=== PATIENT | female | born 1940 | race Caucasian/White ===

== ENCOUNTER 2018-04-05 09:27 | Inpatient (IN) ==
[2018-04-05 09:48] LABS: Basophils % 0.3 % (0.1-2.0); Eosinophils # 0.1 K/mm3 (0.0-0.4); Eosinophils % 1.2 % (0.1-12.0); Hematocrit 33.9 % (37.0-47.0); Hemoglobin 10.9 g/dL (12.2-16.2); Lymphocytes % 12.2 % (10-50); Mean Corpuscular Hemoglobin 30.8 pg (27.0-31.2); Mean Platelet Volume 6.7 fl (7.4-10.4); Monocytes # 0.4 K/mm3 (0.1-1.0); Neutrophils # 6.4 K/mm3 (1.8-7.8); Neutrophils % 81.3 % (37.0-80.0); Platelet Count 356 K/mm3 (142-424); Red Blood Count 3.53 M/mm3 (4.20-5.40); Red Cell Distribution Width 12.4 % (11.5-17.5); White Blood Count 7.8 K/mm3 (4.8-10.8)
--- NOTE | 2018-04-05 09:49 | Emergency Department Note ---
ED Disposition Clinical Impression: Weakness Rhabdomyolysis Qualifiers: Rhabdomyolysis type: traumatic Encounter type: initial encounter Qualified Code(s): T79.6XXA - Traumatic ischemia of muscle, initial encounter Disposition: Admitted As Inpatient Condition on Discharge: [facility] - Critical Care Critical Care Time: No Attestation: On 04/05/18, the high probability of a clinically significant, sudden or life threatening deterioration of the following system(s) required my full and direct attention, intervention and personal management. The time I documented below is in addition to time spent performing reported procedures but includes the following listed in this critical care notation. Medical Decision Making - Boogie Inquiry Pt receiving controlled substance: No Vital Signs: 04/05/18 09:23 04/05/18 09:53 04/05/18 10:53 Temperature 98.3 F Temperature Source Oral Pulse Rate Pulse Rate [Right Brachial] 85 85 89 Respiratory Rate 22 Blood Pressure [Right Arm] 155/56 H 132/56 L 141/70 H Blood Pressure Mean [Right Arm] 89 81 93 Blood Pressure Source [Right Arm] Automatic Cuff Automatic Cuff Blood Pressure Position [Right Arm] Sitting 02 Sat by Pulse Oximetry 99 94 L 96 Oxygen Delivery Method Room Air 04/05/18 11:00 04/05/18 11:30 04/05/18 12:00 Temperature Temperature Source Pulse Rate Pulse Rate [Right Brachial] 91 H 95 H 77 Respiratory Rate Blood Pressure [Right Arm] 136/79 125/44 L 99/44 L Blood Pressure Mean [Right Arm] 98 71 62 Blood Pressure Source [Right Arm] Blood Pressure Position [Right Arm] 02 Sat by Pulse Oximetry 96 93 L 91 L Oxygen Delivery Method 04/05/18 13:00 04/05/18 13:30 04/05/18 13:51 Temperature Temperature Source Pulse Rate Pulse Rate [Right Brachial] 80 85 87 Respiratory Rate Blood Pressure [Right Arm] 139/61 154/64 H Blood Pressure Mean [Right Arm] 87 94 Blood Pressure Source [Right Arm] Automatic Cuff Blood Pressure Position [Right Arm] 02 Sat by Pulse Oximetry 92 L 93 L 96 Oxygen Delivery Method 04/05/18 14:30 04/05/18 15:00 04/05/18 15:41 Temperature Temperature Source Pulse Rate 87 Pulse Rate [Right Brachial] 86 80 Respiratory Rate Blood Pressure [Right Arm] 148/67 H 114/51 L Blood Pressure Mean [Right Arm] 94 72 Blood Pressure Source [Right Arm] Blood Pressure Position [Right Arm] 02 Sat by Pulse Oximetry 96 93 L Oxygen Delivery Method - Lab Data Lab Results 04/05/18 09:35: WBC 7.8, RBC 3.53 L, Hgb 10.9 L, Hct 33.9 L, MCV 96.0, MCH 30.8, MCHC 32.0, RDW 12.4, Plt Count 356, MPV 6.7 L, Neut % (Auto) 81.3 H, Lymph % (Auto) 12.2, [place] % (Auto) 5.0, Eos % (Auto) 1.2, Baso % (Auto) 0.3, Neut # (Auto) 6.4, Lymph # (Auto) 1.0, [place] # (Auto) 0.4, Eos # (Auto) 0.1, Baso # (Auto) 0.0 04/05/18 09:35: Sodium 137, Potassium 3.8, Chloride 101, Carbon Dioxide 27, Anion Gap 12.8, BUN 24 H, Creatinine 0.98, Estimated Creat Clear 93, Estimated GFR 55 L, Est GFR ( Amer) 67, Glucose 126 H, Calcium 9.2, Total Bilirubin 0.7, AST 42 H, ALT 24, Alkaline Phosphatase 77, Total Creatine Kinase 856 H*, CK-MB (CK-2) 5.6 H, CK-MB (CK-2) Rel Index 0.7, Troponin I < 0.02, Total Protein 6.3 L, Albumin 2.8 L, Globulin 3.5 H, Albumin/Globulin Ratio 0.8 L 04/05/18 09:35: B-Natriuretic Peptide 78 04/05/18 09:35: TSH 0.98 04/05/18 09:35: Urine Opiates Screen Positive H, Urine Methadone Screen Negati ve, Ur Barbituates Screen Negative, Ur Phencyclidine Scrn Negative, Ur Amphetamines Screen Negative, U Benzodiazepines Scrn Negative, Urine Cocaine Screen Negative, U Marijuana (THC) Screen Negative 04/05/18 10:55: Urine Color Yellow, Urine Appearance Clear, Urine pH 6.0, Ur Specific [place] 1.015, Urine Protein Negative, Urine Glucose (UA) Negative, Urine Ketones Trace, Urine Blood Negative, Urine Nitrate Negative, Urine Bilirubin Negative, Urine Urobilinogen 0.2, Ur Leukocyte Esterase Negative, Urine RBC None, Urine WBC Occasional, Ur Squamous Epith Cells Occasional, Urine Bacteria None Result diagrams: 04/05/18 09:35 04/05/18 09:35 Orders (Tests/Meds): ED MEDICATIONS Generic Name Dose Route Start Last Admin Trade Name Grace PRN Reason Stop Dose Admin Amlodipine Besylate 5 mg 04/06/18 09:00 Norvasc 5mg Tablet PO 05/06/18 08:59 DAILY BEATA Sodium Chloride 1,000 mls @ 150 mls/hr 04/05/18 16:38 Sod Chlor 0.9% 1000ml Bag IV 05/05/18 10:44 .Q6H40M BEATA Sodium Chloride 1,000 mls @ 150 mls/hr 04/05/18 17:45 Sod Chlor 0.9% 1000ml Bag IV 05/05/18 17:44 .Q6H40M BEATA Sodium Chloride 10 ml 04/05/18 16:38 Saline Flush 10ml Syringe IV 05/05/18 09:54 NEEDED PRN Maintain IV Site Discontinued Medications Generic Name Dose Route Start Last Admin Trade Name Grace PRN Reason Stop Dose Admin Hydrocodone Bitart/Acetaminophen 1 tab 04/05/18 16:38 [place] 5/325mg Tablet PO 05/05/18 16:37 Q4HP PRN Mild to Moderate Pain Sodium Chloride 1,000 mls @ 150 mls/hr 04/05/18 10:45 04/05/18 10:48 Sod Chlor 0.9% 1000ml Bag IV 05/05/18 10:44 150 mls/hr .Q6H40M BEATA Administration Indapamide 1.25 mg 04/06/18 09:00 Lozol 2.5mg Tablet PO 05/06/18 08:59 DAILY BEATA Lisinopril 40 mg 04/06/18 09:00 Zestril 20mg Tab PO 05/06/18 08:59 DAILY BEATA Oxybutynin Chloride 5 mg 04/06/18 09:00 Ditropan 5mg Tablet PO 05/06/18 08:59 DAILY BEATA Sodium Chloride 10 ml 04/05/18 09:55 Saline Flush 10ml Syringe IV 05/05/18 09:54 NEEDED PRN Maintain IV Site ORDERS Category Date Time Status Basic Metabolic Panel AMLAB Lab 04/06/18 06:00 Ordered Creatine Kinase AMLAB Lab 04/06/18 06:00 Ordered - Radiology Data #1 Image(s): Chest, Hip Image Reviewed: Yes I reviewed the patient's radiology image, Yes I have reviewed radiologist's interpretation IMPRESSION: 1. No acute finding. 2. Nonspecific 10 mm nodular opacity left lung base. 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 Periventricular ischemic gliotic change. No acute intracranial hemorrhage Dictated By: Triston English MD Signed By: <Electronically signed by Triston English MD in [place]> 04/05/18 1327 Lumbar Spine: IMPRESSION: 1. No acute fracture. 2. Multilevel lumbar spondylosis with bulging disc, disc protrusions, lateral recess and foraminal narrowing and canal stenosis. Please see above for detailed description at each level. 3. Mild asymmetric prominence with ill definition of the left iliopsoas muscle with some mild stranding in the fat around this region which could be related to posttraumatic change such as hematoma. Pelvic CT may be further value if clinically warranted Dictated By: Triston English MD Signed By: <Electronically signed by Triston English MD in [place]> 04/05/18 1336 - US Data US Images: Lower Extremity Findings Narrative: As per [facility] procedure, ultrasound report received from crime scene technician: Negative for DVT - ECG Data Tracing #1 EKG interpreted by Macario Howe MD: Rhythm: sinus Rate: 82 [place]: normal Ectopy: none Conduction: normal ST Segment Changes: none T Wave Changes: none Q Waves: none No evidence of acute ischemia or injury Low voltage QRS - Physician Consults Physician Consulted: Senia Time: 14:10 Reason -: Admission Comment/Response: Agrees to admit the patient to the hospital. We discussed the patient's clinical information, including history, exam, laboratory and radiology results and ED course. Per hospital procedure, I will write temporary bridge inpatient orders on the patient. Specific orders requested by the admitting physician: Continue hydration, recheck labs in the morning. General Adult HPI - General Chief complaint: Weakness Stated complaint: laid in floor all night, no fall Time Seen by Provider: 04/05/18 09:49 Mode of Arrival: EMS Limitations: No Limitations Description of Symptoms (Recalled from ER Triage Doc. by RN): pt reports she got in the floor and stretched out and then couldn't get up last night. and family tried to get her up and couldn't. complains of left tenderness to hip but continues to deny fall - History of Present Illness HPI narrative: History obtained from family. Patient is a poor historian. Brought in by ambulance because she laid in the floor all night. Family states that she slid out of her chair 10 days ago and has not walked since. Prior to that she was able to ambulate with a walker. She seems to hurt everywhere when you try to move her, but family is particularly concerned about her left lower extremity. She is variously complained of some pain, also feels that she is not able to move it is well, perhaps weaker in that leg, and her left leg seems to be much more swollen than her right. She has a large amount of edema in both lower extremities. They are concerned about a blood clot in her leg. Apparently last night she also slid out of her chair again and laid in the floor all night. The patient says that she did it intentionally to help her back. They also state that she has not been eating or drinking well. She has prior bariatric surgery and is not able to eat large amounts anyway, but she has not eaten hardly anything recently. Has chronic low back pain. Sees a chiropractor. No other pains. No fever. No cough. No diarrhea or vomiting. Family states recently treated for a bladder infection. Primary care doctor is in [place], where they used to live. However, if admitted, she prefers to be admitted here. - Related Data Home Medications Medication Instructions Recorded Confirmed Cholecalciferol (Vitd3)/Vit K2 [D3 1 each PO DAILY 04/05/18 04/05/18 + K2 Dots 1,000 Units Tab] Indapamide 1 tab PO BID 04/05/18 04/05/18 Iron,Carb/Vit C/Vit B12/Folic 1 each PO DAILY 04/05/18 04/05/18 [Iron 100 Plus Tablet] Lisinopril [Lisinopril 40mg Tablet] 1 tab PO DAILY 04/05/18 04/05/18 Oxybutynin Chloride [Ditropan Xl] 5 mg PO BID 04/05/18 04/05/18 Oxycodone HCl [Oxycodone (IR) 5mg 5 mg PO Q4HWA PRN 04/05/18 04/05/18 Cap] Pravastatin Sodium [Pravachol 40mg 40 mg PO DAILY 04/05/18 04/05/18 Tablet] Allergies Allergy/AdvReac Type Severity Reaction Status Date / Time Penicillins AdvReac Intermediate Verified 04/05/18 09:29 [facility] History - Hepatitis A Screen Drug use history?: No High risk sexual behaviors?: No History of sexually transmitted infection?: No Currently employed?: No Childcare worker?: No Do you have indoor plumbing?: Yes Do you have electricity?: Yes Attestation statement:: This patient has been screened for Hepatitis A risk factors. I have reviewed the patient's past medical history: Yes ROS Obtained: Yes All systems reviewed & no additional complaints - Constitutional Constitutional: Denies fever(s), Reports poor appetite, Reports weakness - Cardiovascular Cardiovascular: Denies chest pain, Reports leg edema - Respiratory Respiratory: No dyspnea - Gastrointestinal Gastrointestingal: Denies: abdominal pain, diarrhea, vomiting - Genitourinary Female Genitourinary: Reports as per HPI - Musculoskeletal Musculoskeletal: Reports as per HPI, Reports back pain Physical Exam - General General appearance: alert, in no apparent distress - Head Head exam: atraumatic, normocephalic - Eye Eye exam: Present: normal appearance, PERRL, EOMI - ENT ENT exam: Present: mucous membranes moist - Neck Neck exam: Present: normal inspection, trachea midline - Chest Chest inspection: Present: normal inspection, symmetric chest wall rise - Respiratory Respiratory exam: Present: normal lung sounds bilaterally. Absent: respiratory distress - Cardiovascular Cardiovascular exam: Present: regular rate, normal rhythm, normal heart sounds - Abdominal Exam Abdominal exam: Present: soft. Absent: distention, tenderness - Extremities Exam Extremities exam: Present: other (4+/4+ bilateral pitting edema, although somewhat worse on the left). Absent: calf tenderness - Neurological Exam Neurological exam: Present: alert - Expanded Neurological Exam Comment: Symmetric strength in arms. Wiggles toes bilaterally. Cannot lift either leg off the bed independently. Sensory intact throughout. - Psychiatric Psychiatric exam: Present: normal affect, normal mood - Skin Skin exam: Present: warm, dry
[2018-04-05 10:13] LABS: Alanine Aminotransferase 24 U/L (12-78); Albumin Level 2.8 gm/dL (3.4-5.0); Albumin/Globulin Ratio 0.8 (1.1-1.8); Alkaline Phosphatase 77 U/L (46-116); Anion Gap 12.8 mEq/L (5-15); Aspartate Amino Transferase 42 U/L (15-37); Bilirubin,Total 0.7 mg/dL (0.2-1.0); Blood Urea Nitrogen 24 mg/dL (7-18); Calcium 9.2 mg/dL (8.5-10.1); Carbon Dioxide 27 mmol/L (21.0-32.0); Chloride 101 mmol/L (98-107); Creatine Kinase 856 U/L (26-192); Globulin 3.5 gm/dl (1.3-3.2); Glucose 126 mg/dL (74-106); Potassium 3.8 mmoL/L (3.5-5.1); Sodium 137 mmol/L (136-145); Total Protein,Serum 6.3 gm/dL (6.4-8.2)
[2018-04-05 11:00] LABS: Microscopic, Urine URINE MICROSCOPIC (MICROSCOPIC)
[2018-04-05 11:03] LABS: Appearance,Urine CLEAR (Clear); Bilirubin,Urine Negative (Negative); Blood, Urine Negative (Negative); Color,Urine YELLOW (Yellow); Glucose,Urine (UA) Negative (Negative); Ketones,Urine TRACE (Negative); Leukocyte Esterase,Urine Negative (Negative); Protein,Urine Negative (Negative); Specific Gravity, Urine 1.015 (1.005-1.030); Urobilinogen,Urine 0.2 EU/dl (0.2)
[2018-04-05 11:10] LABS: Squamous Epithelial Cell,Urine Occasional #/hpf (0-5); WBC,Urine Occasional #/hpf (0-3)
--- NOTE | 2018-04-05 11:21 | Non-Invasive Vascular Report ---
"Venous Exam Indications: 729.81 Swelling of limb. 729.5 Pain in limb. IMPRESSIONS 1. There is no evidence of significant Reflux. 2. No evidence of deep or superficial vein thrombosis involving the left lower extremity Left lower extremity venous duplex evaluation. Doppler flow study including spectral analysis, color and negron scale imaging. Location: Bedside. Patient status: Emergency department. CRITICAL FINDINGS - Reported to: ЕЛЕНА Dooley back and verified. - 04/05/18 - NONE Tables: Venous flow and imaging: + +-------+ + |Location |Overall|Flow properties | + +-------+ + |Left common femoral |Patent |Normal phasicity; spontaneous; | | | |normal augmentation; compressible | + +-------+ + |Left saphenofemoral junction|Patent |Compressible | + +-------+ + |Left profunda femoral |Patent |Compressible | + +-------+ + |Left femoral |Patent |Normal phasicity; spontaneous; | | | |normal augmentation; compressible | + +-------+ + |Left greater saphenous |Patent |Normal phasicity; spontaneous; | | | |normal augmentation; compressible | + +-------+ + |Left popliteal |Patent |Normal phasicity; spontaneous; | | | |normal augmentation; compressible | + +-------+ + |Left posterior tibial |Patent |Compressible | + +-------+ + |Left peroneal |Patent |Compressible | + +-------+ + |Left gastrocnemius |Patent |Compressible | + +-------+ + |Left soleal |Patent |Compressible | + +-------+ + (Report amended ) Electronically signed by: Triston English [id number]"
--- NOTE | 2018-04-05 17:45 | History & Physical Report ---
*Admission Date: 04/05/18 *Chief complaint: Fall with weakness *History of present illness: 78-year-old white female who follows with a family practitioner in [place], [place], but has lived in [facility] for the past 20 years, presented to the hospital with her family after having 10 days of a significant change in her health status. and daughter reports that 2 weeks ago she saw her family practitioner for her normal healthcare status visit, at which time she was noted to have some increasing lower extremity edema. Her indapamide was continued, and she was prescribed ciprofloxacin for a urinary tract infection. She improved but over the next for 5 days again to have increasing lower extremity edema, increasing somnolence and increasing problems with movement. She fell down at home while sliding out of her chair and with a great deal of difficulty her family was able to get her back into her chair. Since that time her reports that she is "not gotten up." He states that she has been sleeping quite a bit and quite simply has not felt like getting up and moving around. Family reports that they contacted her family practitioner who recommended increasing her indapamide to help with swelling but this did not really help. She slid out of her chair again yesterday, and they were unable to get her up and she laid on the floor for several hours. They were able to get her into a bed yesterday evening but she complained of pain and was brought to the emergency department. In the emergency department she was found to be somnolent but arousable. Extensive workup showed no evidence of fractures in her spine, hips or other bony extremities but did have extensive bone spurring and evidence of spinal stenosis. CT scan of the head showed age-related spots but no significant acute infarct changes. Significantly, she was found to have rhabdomyolysis with highly elevated CPK level and was admitted to hospital for hydration, further evaluation of functional status. [facility] History I have reviewed the patient's past medical history: Yes Medical History: Reports:: Hyperlipidemia, Hypertension Have you ever received a pneumonia vaccine?: Yes Have you received a flu vaccine this season?: No Comment:: Vitamin D deficiency. Significant peripheral edema. Morbid obesity status post bariatric surgery 10 years ago with weight loss of approximately 100 pounds. Chronic back pain on chronic narcotic therapy Other Surgeries: Yes: Bariatric Surgery, Hysterectomy-Total - *Social History Educational Level: Completed High School Smoking Status: Never smoker Alcohol Intake: never Occupational Status: disabled Household Members: spouse, family Travel in the last 8 weeks: None - Psychiatric History Expresses thoughts of harming self/others: None Suicide Plan Description: No Plan Family Hx:: Heart Attack Review of Systems - Review of Systems Review of systems:: pertinent systems reviewed and negative unless documented below Patient is sleeping. When arousable is able to give 1 word answers to review of systems. She specifically denies chest pain, dyspnea or abdominal complaints, and specifically denies headache. She reports hip pain when she lies on her back. Otherwise she is unable to give most of her review of systems. - *Neurologic Reports weakness Meds Home Medications Medication Instructions Recorded Confirmed Type Cholecalciferol (Vitd3)/Vit K2 [D3 1 each PO DAILY 04/05/18 04/05/18 History + K2 Dots 1,000 Units Tab] Indapamide 1 tab PO BID 04/05/18 04/05/18 History Iron,Carb/Vit C/Vit B12/Folic 1 each PO DAILY 04/05/18 04/05/18 History [Iron 100 Plus Tablet] Lisinopril [Lisinopril 40mg Tablet] 1 tab PO DAILY 04/05/18 04/05/18 History Oxybutynin Chloride [Ditropan Xl] 5 mg PO BID 04/05/18 04/05/18 History Oxycodone HCl [Oxycodone (IR) 5mg 5 mg PO Q4HWA PRN 04/05/18 04/05/18 History Cap] Pravastatin Sodium [Pravachol 40mg 40 mg PO DAILY 04/05/18 04/05/18 History Tablet] Allergies Allergy/AdvReac Type Severity Reaction Status Date / Time Penicillins AdvReac Intermediate Verified 04/05/18 09:29 Exam Vital signs and Labs for Last 24 Hours: Temp Pulse Resp BP Pulse Ox 98.3 F 64 16 123/48 L 99 04/05/18 16:00 04/05/18 16:00 04/05/18 16:00 04/05/18 16:00 04/05/18 16:00 Laboratory Results - last 24 hr 04/05/18 09:35: WBC 7.8, RBC 3.53 L, Hgb 10.9 L, Hct 33.9 L, MCV 96.0, MCH 30.8, MCHC 32.0, RDW 12.4, Plt Count 356, MPV 6.7 L, Neut % (Auto) 81.3 H, Lymph % (Auto) 12.2, [place] % (Auto) 5.0, Eos % (Auto) 1.2, Baso % (Auto) 0.3, Neut # (Auto) 6.4, Lymph # (Auto) 1.0, [place] # (Auto) 0.4, Eos # (Auto) 0.1, Baso # (Auto) 0.0 04/05/18 09:35: Sodium 137, Potassium 3.8, Chloride 101, Carbon Dioxide 27, Anion Gap 12.8, BUN 24 H, Creatinine 0.98, Estimated Creat Clear 93, Estimated GFR 55 L, Est GFR ( Amer) 67, Glucose 126 H, Calcium 9.2, Total Bilirubin 0.7, AST 42 H, ALT 24, Alkaline Phosphatase 77, Total Creatine Kinase 856 H*, CK-MB (CK-2) 5.6 H, CK-MB (CK-2) Rel Index 0.7, Troponin I < 0.02, Total Protein 6.3 L, Albumin 2.8 L, Globulin 3.5 H, Albumin/Globulin Ratio 0.8 L 04/05/18 09:35: B-Natriuretic Peptide 78 04/05/18 10:55: Urine Color Yellow, Urine Appearance Clear, Urine pH 6.0, Ur Specific [place] 1.015, Urine Protein Negative, Urine Glucose (UA) Negative, Urine Ketones Trace, Urine Blood Negative, Urine Nitrate Negative, Urine Bilirubin Negative, Urine Urobilinogen 0.2, Ur Leukocyte Esterase Negative, Urine RBC None, Urine WBC Occasional, Ur Squamous Epith Cells Occasional, Urine Bacteria None I & O for Last 24 hours: Intake & Output 04/03/18 04/04/18 04/05/18 04/06/18 11:59 11:59 11:59 11:59 Intake Total 1000 / 1000 Balance 1000 / 1000 Weight 270 lb 265 lb 5 oz Narrative: Patient is sleeping. She sleeps through my entire interview with her and daughter. She is arousable to verbal stimuli but when left alone for any length of time whatsoever she falls back asleep. When she is arousable she is able to follow simple commands. She has no scleral icterus or jaundice. Pupils are sluggish but equally reactive. Extraocular motions are intact. She has poor dental positioning and hygiene but no oral lesions and her mucosa is moist. Heart rate regular without murmurs. Lungs are clear in the anterior and posterior long. Abdomen is soft. Her exam is compromised by her morbid obesity. Upper extremities have good distal pulses, no significant hand edema. Lower extremities have 2+ edema, slightly worse on the left, pulses are nonpalpable because of the edema. She is able to move all of her extremities but her left leg is slightly weaker with 3/5 knee flexion. Upper extremities have 4/5 strength. Cranial nerves are intact. Assessment and Plan (1) Morbid obesity with BMI of 40.0-44.9, adult Current visit: Yes Status: Acute Category: Medical Code(s): E66.01 - Morbid (severe) obesity due to excess calories; Z68.41 - Body mass index (BMI) 40.0-44.9, adult Complicates all aspects of her care -prior bariatric surgery renders her prone to nutritional deficiency issues. Probable cause of her anemia. (2) Change in mental status Current visit: Yes Status: Acute Category: Medical Code(s): R41.82 - Altered mental status, unspecified Multiple possible etiologies. Reassuringly for age CAT scan and labs other than her rhabdomyolysis. I have ordered thyroid, B12 and ammonia levels. Also urine drug screen. Given her fairly significant narcotic use we will hold this, she may need restarting at low levels tomorrow if she has any degree of withdrawal symptoms. Tylenol for pain overnight. (3) Chronic narcotic use Current visit: Yes Status: Acute Category: Medical Code(s): F11.90 - Opioid use, unspecified, uncomplicated See notes above. Hold currently to see if mental status clears. She may have had oversedation from her opiate therapy. She may need this restarted if withdrawal symptoms occur. (4) Rhabdomyolysis Current visit: Yes Status: Acute Qualifiers: Rhabdomyolysis type: traumatic Encounter type: initial encounter Qualified Code(s): T79.6XXA - Traumatic ischemia of muscle, initial encounter Category: Medical Code(s): M62.82 - Rhabdomyolysis IV fluids. Repeat renal studies and CPK levels in the morning. (5) Weakness Current visit: Yes Status: Acute Category: Medical Code(s): R53.1 - Weakness PT evaluation. Multifactorial etiologies. I think patient will need long-term care placement. (6) Anemia associated with nutritional deficiency Current visit: Yes Status: Acute Category: Medical Code(s): D53.9 - Nutritional anemia, unspecified See history above of bariatric surgery issues - patient is on vitamin D and iron therapy at home.
[2018-04-05 18:02] LABS: Amphetamine/Metha Screen,Urine Negative ng/mL (<1000); Barbiturates Screen,Urine Negative ng/mL (<200); Benzodiazepines Screen,Urine Negative ng/mL (<200); Cannabinoid Screen,Urine Negative ng/mL (<50); Cocaine Screen,Urine Negative ng/mL (<300); Methadone Screen,Urine Negative ng/mL (<300); Opiate Screen,Urine Positive ng/mL (<300); Phencyclidine Screen,Urine Negative ng/mL (<25)
[2018-04-06 07:05] LABS: Anion Gap 10.4 mEq/L (5-15); Calcium 8.8 mg/dL (8.5-10.1); Potassium 3.4 mmoL/L (3.5-5.1)
--- NOTE | 2018-04-06 14:11 | Pharmacy Consult Notes ---
[facility] Pharmacy VTE Monitoring - Patient Demographics Admission date: 04/05/18 Report Date: 04/06/18 Time: 14:11 Allergies/Adverse Reactions: Patient Allergies Penicillins Adverse Reaction (Intermediate, Verified 04/05/18 09:29) Height: 1.68 m Weight: 120.344 kg Patient Problems: Current Active Problems Rhabdomyolysis (Acute) Weakness (Acute) Morbid obesity with BMI of 40.0-44.9, adult (Acute) Change in mental status (Acute) Chronic narcotic use (Acute) Anemia associated with nutritional deficiency (Acute) - VTE Risk Labs: VTE Related Lab Results Hgb 10.9 g/dL (12.2-16.2) L 04/05/18 09:35 Hct 33.9 % (37.0-47.0) L 04/05/18 09:35 Plt Count 356 K/mm3 (142-424) 04/05/18 09:35 BUN 18 mg/dL (7-18) 04/06/18 06:24 Creatinine 0.77 mg/dL (0.55-1.02) D 04/06/18 06:24 Estimated Creat Clear 45 mL/min (50-200) 04/06/18 06:24 Was VTE Risk Assessment Performed: Yes VTE Score: 1 VTE Risk Level: Moderate Risk - Prophylaxis VTE Prophylaxis Ordered?: Yes Types of VTE Prophylaxis: TEDS Knee High Location of Applied Device: Bilateral Lower Extremeties
--- NOTE | 2018-04-06 14:29 | Progress Note ---
Internal Medicine - PN: Subj *Date: 04/06/18 *Time: 11:45 Interval history: Ms. Koch states she feels well this morning. Little improved after IV fluids. Denies falling out of her chair yesterday at home on interview today. Reports that she got out of her chair and laid down and people thought she fell. Informed her that this does not necessarily explain why she would have rhabdomyolysis. She is very pleasant on interview this morning, wanting to go home. States she can walk without difficulty and is fine at home. Having episodes of stool incontinence. Remains afebrile, denies shortness of breath, chest pain, nausea vomiting. Stools remain loose. Exam Vital signs and Labs for Last 24 Hours: Temp Pulse Resp BP Pulse Ox 98.3 F 86 18 123/51 L 94 L 04/06/18 12:00 04/06/18 12:00 04/06/18 12:00 04/06/18 12:00 04/06/18 12:00 Laboratory Results - last 24 hr 04/05/18 09:35: TSH 0.98 04/05/18 09:35: Urine Opiates Screen Positive H, Urine Methadone Screen Negativ e, Ur Barbituates Screen Negative, Ur Phencyclidine Scrn Negative, Ur Amphetamines Screen Negative, U Benzodiazepines Scrn Negative, Urine Cocaine Screen Negative, U Marijuana (THC) Screen Negative 04/05/18 17:50: Ammonia < 10 L 04/06/18 06:24: Sodium 140, Potassium 3.4 L, Chloride 106, Carbon Dioxide 27, Anion Gap 10.4, BUN 18, Creatinine 0.77 D, Estimated Creat Clear 45, Estimated GFR 73, Est GFR ( Amer) 88 D, Glucose 97 D, Calcium 8.8, Total Creatine Kinase 454 H D I & O for Last 24 hours: Intake & Output 04/03/18 04/04/18 04/05/18 04/06/18 23:59 23:59 23:59 23:59 Intake Total 1000 / 1000 2370 Output Total 300 / 300 Balance 1000 / 1000 2070 Weight 120.344 kg 120.344 kg Narrative: Patient is awake and alert. Oriented to person place and time. No family at bedside She has no scleral icterus or jaundice. Pupils are equal round and reactive. Extraocular motions are intact. She has poor dental positioning and hygiene but no oral lesions and her mucosa is moist. Heart rate regular without murmurs. Lungs are clear in the anterior and posterior long. Abdomen is soft and protuberant. Her exam is compromised by her morbid obesity. Upper extremities have good distal pulses, no significant hand edema. Lower extremities have 2+ edema, slightly worse on the left, pulses are nonpalpable because of the edema. She is able to move all of her extremities but her left leg is slightly weaker with 3/5 knee flexion. Upper extremities have 4/5 strength. Cranial nerves are intact. Assessment and Plan (1) Morbid obesity with BMI of 40.0-44.9, adult Current visit: Yes Status: Chronic Category: Medical Code(s): E66.01 - Morbid (severe) obesity due to excess calories; Z68.41 - Body mass index (BMI) 40.0-44.9, adult Complicates all aspects of care (2) Change in mental status Current visit: Yes Status: Resolved Category: Medical Code(s): R41.82 - Altered mental status, unspecified (3) Chronic narcotic use Current visit: Yes Status: Acute Category: Medical Code(s): F11.90 - Opioid use, unspecified, uncomplicated (4) Rhabdomyolysis Current visit: Yes Status: Acute Qualifiers: Rhabdomyolysis type: traumatic Encounter type: initial encounter Qualified Code(s): T79.6XXA - Traumatic ischemia of muscle, initial encounter Category: Medical Code(s): M62.82 - Rhabdomyolysis Improving. Suspect due to being immobile and on the floor for an extended period of time however patient disagrees with this on history today. (5) Weakness Current visit: Yes Status: Acute Category: Medical Code(s): R53.1 - Weakness Patient denies having significant weakness and reports being able to ambulate however when attempted to get up to bedside and walk around the room, required 2 person assist. Shows concern for significant debility. I have high concern she will need placement given her debility. Physical therapy consulted for recommendations. This will likely impede her discharge. (6) Anemia associated with nutritional deficiency Current visit: Yes Status: Acute Category: Medical Code(s): D53.9 - Nutritional anemia, unspecified (7) Diarrhea Current visit: Yes Status: Acute Qualifiers: Diarrhea type: unspecified type Qualified Code(s): R19.7 - Diarrhea, unspecified Category: Medical Code(s): R19.7 - Diarrhea, unspecified Present on admission. Ordered stool to assess for C. difficile given recent antibiotics. Treatment pending workup
[2018-04-07 07:12] LABS: Albumin Level 2.5 gm/dL (3.4-5.0); Albumin/Globulin Ratio 0.8 (1.1-1.8); Anion Gap 11.2 mEq/L (5-15); Bilirubin,Total 0.4 mg/dL (0.2-1.0); Calcium 8.5 mg/dL (8.5-10.1); Globulin 3.2 gm/dl (1.3-3.2); Potassium 3.2 mmoL/L (3.5-5.1); Total Protein,Serum 5.7 gm/dL (6.4-8.2)
--- NOTE | 2018-04-07 12:45 | Progress Note ---
Internal Medicine - PN: Subj *Date: 04/07/18 *Time: 11:00 Interval history: No acute events overnight. She is up in chair at time of exam and reports pain in the left lower back and left thigh that are at baseline. Still requiring 2 people for transfers. Denies any other concerns/questions. One of her sons is at bedside and they are aware of pending therapy consult and possible rehabilitation placement if indicated. Her does live at home with her but he is 80+ years old and not able to help to the level needed and her son works throughout the day. Uses a walker occasionally at home but reports that her home environment is really not conducive to using a wheelchair. Exam Vital signs and Labs for Last 24 Hours: Temp Pulse Resp BP Pulse Ox 99.6 F 75 18 150/76 H 97 04/07/18 07:39 04/07/18 07:39 04/07/18 07:39 04/07/18 07:39 04/07/18 07:39 Laboratory Results - last 24 hr 04/07/18 06:38: Sodium 143, Potassium 3.2 L, Chloride 108 H, Carbon Dioxide 27, Anion Gap 11.2, BUN 8 D, Creatinine 0.67, Estimated Creat Clear 45, Estimated GFR 86, Est GFR ( Amer) 104, Glucose 101, Calcium 8.5, Total Bilirubin 0 .4, AST 25 D, ALT 25, Alkaline Phosphatase 66, Total Creatine Kinase 327 H D, Total Protein 5.7 L, Albumin 2.5 L, Globulin 3.2, Albumin/Globulin Ratio 0.8 L I & O for Last 24 hours: Intake & Output 04/05/18 04/06/18 04/07/18 04/08/18 11:59 11:59 11:59 11:59 Intake Total 3371 / 3371 3866 / 3866 Output Total 300 / 300 500 / 500 Balance 3071 / 3071 3366 / 3366 Weight 270 lb 265 lb 5 oz 265 lb 5 oz Narrative: Pleasant female, up in chair. Alert and oriented x 3. Mucous membranes moist, neck supple. Heart has RRR, peripheral pulses intact. Lungs clear with good air movement. Abdomen soft, NT/ND, BS presnet, obese. Moves all extremities, no edema. Skin intact with acute rashes. Assessment and Plan (1) Rhabdomyolysis Current visit: Yes Status: Acute Qualifiers: Rhabdomyolysis type: traumatic Encounter type: initial encounter Qualified Code(s): T79.6XXA - Traumatic ischemia of muscle, initial encounter Category: Medical Code(s): M62.82 - Rhabdomyolysis (2) Morbid obesity with BMI of 40.0-44.9, adult Current visit: Yes Status: Chronic Category: Medical Code(s): E66.01 - Morbid (severe) obesity due to excess calories; Z68.41 - Body mass index (BMI) 40.0-44.9, adult (3) Change in mental status Current visit: Yes Status: Resolved Category: Medical Code(s): R41.82 - Altered mental status, unspecified (4) Chronic narcotic use Current visit: Yes Status: Acute Category: Medical Code(s): F11.90 - Opioid use, unspecified, uncomplicated (5) Weakness Current visit: Yes Status: Acute Category: Medical Code(s): R53.1 - Weakness (6) Anemia associated with nutritional deficiency Current visit: Yes Status: Acute Category: Medical Code(s): D53.9 - Nutritional anemia, unspecified (7) Diarrhea Current visit: Yes Status: Acute Qualifiers: Diarrhea type: unspecified type Qualified Code(s): R19.7 - Diarrhea, unspecified Category: Medical Code(s): R19.7 - Diarrhea, unspecified (8) Hypokalemia Current visit: Yes Status: Acute Category: Medical Code(s): E87.6 - Hypokalemia replace with 40meq orally today - Assessment and plan all Dx Assessment and Plan for all problems:: Overall condition is improved with clearing of mental status changes after hydration and decreased narcotic use. Needs PT evaluation and likely placement for physical rehabilitation and medication monitoring.
--- NOTE | 2018-04-08 07:35 | Progress Note ---
Internal Medicine - PN: Subj *Date: 04/08/18 *Time: 07:33 Interval history: Patient has improved over the last 24 hours. Much more alert. Does remember some of the events of Sunday but certainly most of these are cloudy for her. Exam Vital signs and Labs for Last 24 Hours: Temp Pulse Resp BP Pulse Ox 98.1 F 80 20 130/59 L 94 L 04/08/18 04:00 04/08/18 04:00 04/08/18 04:00 04/08/18 04:00 04/08/18 04:00 I & O for Last 24 hours: Intake & Output 04/05/18 04/06/18 04/07/18 04/08/18 11:59 11:59 11:59 11:59 Intake Total 3371 / 3371 3866 / 3866 480 / 480 Output Total 300 / 300 500 / 500 1750 / 1750 Balance 3071 / 3071 3366 / 3366 -1270 / -1270 Weight 270 lb 265 lb 5 oz 265 lb 5 oz Narrative: Patient is awake. Alert. Oriented x2. Little fuzzy about the date but much more alert than on admission. Anterior lung long are clear. Heart rate regular. Abdomen soft. She is eating breakfast well. She is able to move all arms and legs but is somewhat globally weak. Cranial nerves intact. Oropharynx clear. No JVD. Assessment and Plan (1) Rhabdomyolysis Current visit: Yes Status: Acute Qualifiers: Rhabdomyolysis type: traumatic Encounter type: initial encounter Qualified Code(s): T79.6XXA - Traumatic ischemia of muscle, initial encounter Category: Medical Code(s): M62.82 - Rhabdomyolysis Overall improving. PT evaluation today to assess weakness and possible need for skilled care placement. (2) Morbid obesity with BMI of 40.0-44.9, adult Current visit: Yes Status: Chronic Category: Medical Code(s): E66.01 - Morbid (severe) obesity due to excess calories; Z68.41 - Body mass index (BMI) 40.0-44.9, adult (3) Change in mental status Current visit: Yes Status: Resolved Category: Medical Code(s): R41.82 - Altered mental status, unspecified (4) Chronic narcotic use Current visit: Yes Status: Acute Category: Medical Code(s): F11.90 - Opioid use, unspecified, uncomplicated Patient states that she takes hydrocodone twice daily as needed and usually does not take this on a daily basis. We will continue to monitor. (5) Weakness Current visit: Yes Status: Acute Category: Medical Code(s): R53.1 - Weakness (6) Anemia associated with nutritional deficiency Current visit: Yes Status: Acute Category: Medical Code(s): D53.9 - Nutritional anemia, unspecified (7) Diarrhea Current visit: Yes Status: Acute Qualifiers: Diarrhea type: unspecified type Qualified Code(s): R19.7 - Diarrhea, unspecified Category: Medical Code(s): R19.7 - Diarrhea, unspecified (8) Hypokalemia Current visit: Yes Status: Acute Category: Medical Code(s): E87.6 - Hypokalemia Continue oral replacement.
[2018-04-08 07:43] LABS: Basophils % 0.5 % (0.1-2.0); Eosinophils # 0.1 K/mm3 (0.0-0.4); Eosinophils % 2.5 % (0.1-12.0); Hematocrit 32.2 % (37.0-47.0); Hemoglobin 10.1 g/dL (12.2-16.2); Lymphocytes # 1.1 K/mm3 (0.7-4.5); Lymphocytes % 22.1 % (10-50); Mean Corpuscular HGB Conc 31.3 g/dL (31.8-35.4); Mean Corpuscular Volume 95.9 fl (81-99); Mean Platelet Volume 6.5 fl (7.4-10.4); Monocytes # 0.3 K/mm3 (0.1-1.0); Monocytes % 5.8 % (1.7-9.3); Neutrophils # 3.5 K/mm3 (1.8-7.8); Neutrophils % 69.1 % (37.0-80.0); Platelet Count 347 K/mm3 (142-424); Red Blood Count 3.36 M/mm3 (4.20-5.40); Red Cell Distribution Width 12.3 % (11.5-17.5); White Blood Count 5.1 K/mm3 (4.8-10.8)
[2018-04-08 07:52] LABS: Anion Gap 12.5 mEq/L (5-15); Calcium 9.1 mg/dL (8.5-10.1); Potassium 3.5 mmoL/L (3.5-5.1)
[2018-04-09 06:23] LABS: Anion Gap 12.3 mEq/L (5-15); Calcium 8.7 mg/dL (8.5-10.1); Potassium 3.3 mmoL/L (3.5-5.1)
--- NOTE | 2018-04-09 07:12 | Progress Note ---
Internal Medicine - PN: Subj *Date: 04/09/18 *Time: 07:10 Interval history: Patient overall feels better, much more alert. Pleasant. Talkative. About to eat breakfast. Her only complaint is leg pain in both lower extremities which occurs "whenever it rains." Exam Vital signs and Labs for Last 24 Hours: Temp Pulse Resp BP Pulse Ox 98.2 F 73 20 130/64 96 04/09/18 04:00 04/09/18 04:00 04/09/18 04:00 04/09/18 04:00 04/09/18 04:00 Laboratory Results - last 24 hr 04/05/18 09:35: Vitamin B12 198 L 04/08/18 06:37: WBC 5.1 D, RBC 3.36 L, Hgb 10.1 L, Hct 32.2 L, MCV 95.9, MCH 30.0, MCHC 31.3 L, RDW 12.3, Plt Count 347, MPV 6.5 L, Neut % (Auto) 69.1, Lymph % (Auto) 22.1, [place] % (Auto) 5.8, Eos % (Auto) 2.5, Baso % (Auto) 0.5, Neut # (Auto) 3.5, Lymph # (Auto) 1.1, [place] # (Auto) 0.3, Eos # (Auto) 0.1, Baso # (Auto) 0.0 04/08/18 06:37: Sodium 144, Potassium 3.5, Chloride 108 H, Carbon Dioxide 27, Anion Gap 12.5, BUN 6 L, Creatinine 0.65, Estimated Creat Clear 45, Estimated GFR 89, Est GFR ( Amer) 107, Glucose 92, Calcium 9.1, Total Creatine Kinase 252 H 04/09/18 05:57: Sodium 143, Potassium 3.3 L, Chloride 107, Carbon Dioxide 27, Anion Gap 12.3, BUN 6 L, Creatinine 0.66, Estimated Creat Clear 45, Estimated GFR 87, Est GFR ( Amer) 105, Glucose 92, Calcium 8.7, Total Creatine Kinase 153 D I & O for Last 24 hours: Intake & Output 04/06/18 04/07/18 04/08/18 04/09/18 11:59 11:59 11:59 11:59 Intake Total 3371 / 3371 3866 / 3866 600 / 600 1669 / 1669 Output Total 300 / 300 500 / 500 1950 / 1950 1875 / 1875 Balance 3071 / 3071 3366 / 3366 -1350 / -1350 -206 / -206 Weight 265 lb 5 oz 265 lb 5 oz 265 lb 5.009 oz Narrative: Pain alert, oriented x2. Much more oriented about the date, understands what season and then year it is. Her oropharynx is clear. Heart rate regular Lungs are clear. Neck is normal with no JVD. Normal range of motion. Abdomen soft nontender. Extremities have trace ankle edema as previously noted. Move all extremities well. No evidence of hearing loss or hyperesthesia. Changes of osteoarthritis as previously noted. Assessment and Plan (1) Rhabdomyolysis Current visit: Yes Status: Acute Qualifiers: Rhabdomyolysis type: traumatic Encounter type: initial encounter Qualified Code(s): T79.6XXA - Traumatic ischemia of muscle, initial encounter Category: Medical Code(s): M62.82 - Rhabdomyolysis (2) Morbid obesity with BMI of 40.0-44.9, adult Current visit: Yes Status: Chronic Category: Medical Code(s): E66.01 - Morbid (severe) obesity due to excess calories; Z68.41 - Body mass index (BMI) 40.0-44.9, adult (3) Change in mental status Current visit: Yes Status: Resolved Category: Medical Code(s): R41.82 - Altered mental status, unspecified (4) Chronic narcotic use Current visit: Yes Status: Acute Category: Medical Code(s): F11.90 - Opioid use, unspecified, uncomplicated (5) Weakness Current visit: Yes Status: Acute Category: Medical Code(s): R53.1 - Weakness (6) Anemia associated with nutritional deficiency Current visit: Yes Status: Acute Category: Medical Code(s): D53.9 - Nutritional anemia, unspecified (7) Diarrhea Current visit: Yes Status: Acute Qualifiers: Diarrhea type: unspecified type Qualified Code(s): R19.7 - Diarrhea, unspecified Category: Medical Code(s): R19.7 - Diarrhea, unspecified (8) Hypokalemia Current visit: Yes Status: Acute Category: Medical Code(s): E87.6 - Hypokalemia - Assessment and plan all Dx Assessment and Plan for all problems:: Overall patient is improving from her above no problems. Candidate for skilled rehabilitation because of weakness. Currently investigating local facilities for insurance acceptability and bed space Replace potassium today. Given her pain we will try low-dose gabapentin instead of narcotics to avoid further mental status changes.
[2018-04-10 06:22] LABS: Basophils % 0.7 % (0.1-2.0); Eosinophils # 0.2 K/mm3 (0.0-0.4); Hematocrit 31.5 % (37.0-47.0); Hemoglobin 9.9 g/dL (12.2-16.2); Lymphocytes # 1.2 K/mm3 (0.7-4.5); Lymphocytes % 24.6 % (10-50); Mean Corpuscular HGB Conc 31.6 g/dL (31.8-35.4); Mean Corpuscular Hemoglobin 30.3 pg (27.0-31.2); Mean Corpuscular Volume 95.9 fl (81-99); Mean Platelet Volume 6.4 fl (7.4-10.4); Monocytes # 0.3 K/mm3 (0.1-1.0); Monocytes % 6.4 % (1.7-9.3); Neutrophils # 3.1 K/mm3 (1.8-7.8); Neutrophils % 64.3 % (37.0-80.0); Platelet Count 349 K/mm3 (142-424); Red Blood Count 3.28 M/mm3 (4.20-5.40); Red Cell Distribution Width 12.4 % (11.5-17.5); White Blood Count 4.8 K/mm3 (4.8-10.8)
[2018-04-10 06:35] LABS: Albumin Level 2.5 gm/dL (3.4-5.0); Albumin/Globulin Ratio 0.8 (1.1-1.8); Anion Gap 9.6 mEq/L (5-15); Bilirubin,Total 0.4 mg/dL (0.2-1.0); Calcium 8.8 mg/dL (8.5-10.1); Globulin 3.1 gm/dl (1.3-3.2); Potassium 3.6 mmoL/L (3.5-5.1); Total Protein,Serum 5.6 gm/dL (6.4-8.2)
--- NOTE | 2018-04-10 07:57 | Progress Note ---
Internal Medicine - PN: Subj *Date: 04/10/18 *Time: 07:55 Interval history: Patient had a good night sleep. Is eating breakfast well. Has no complaints of pain or shortness of air. Somehow there is a notation in 1 of the nursing documentation that patient had diarrhea and we were testing for C. difficile. Patient has not had diarrhea here in the hospital, has no evidence of C. difficile, no abdominal pain no vomiting and has had no recent exposure to antibiotics. Exam Vital signs and Labs for Last 24 Hours: Temp Pulse Resp BP Pulse Ox 98.8 F 69 16 137/62 94 L 04/10/18 04:00 04/10/18 04:00 04/10/18 04:00 04/10/18 04:00 04/10/18 04:00 Laboratory Results - last 24 hr 04/05/18 17:50: Whole Blood Arsenic 8, Whole Blood Lead 2, WB Mercury ug/L None detected 04/10/18 05:50: WBC 4.8, RBC 3.28 L, Hgb 9.9 L, Hct 31.5 L, MCV 95.9, MCH 30.3, MCHC 31.6 L, RDW 12.4, Plt Count 349, MPV 6.4 L, Neut % (Auto) 64.3, Lymph % (Auto) 24.6, [place] % (Auto) 6.4, Eos % (Auto) 4.0, Baso % (Auto) 0.7, Neut # (Auto) 3.1, Lymph # (Auto) 1.2, [place] # (Auto) 0.3, Eos # (Auto) 0.2, Baso # (Auto) 0.0 04/10/18 05:50: Sodium 142, Potassium 3.6, Chloride 107, Carbon Dioxide 29, Anion Gap 9.6, BUN 4 L D, Creatinine 0.65, Estimated Creat Clear 45, Estimated GFR 89, Est GFR ( Amer) 107, Glucose 94, Calcium 8.8, Total Bilirubin 0.4, AST 15 D, ALT 22, Alkaline Phosphatase 62, Total Protein 5.6 L, Albumin 2.5 L, Globulin 3.1, Albumin/Globulin Ratio 0.8 L I & O for Last 24 hours: Intake & Output 02/10/19 02/11/19 02/12/19 02/13/19 11:59 11:59 11:59 11:59 Intake Total 3866 / 3866 600 / 600 1909 / 1909 1497 / 1497 Output Total 500 / 500 1950 / 1950 1875 / 1875 1500 / 1500 Balance 3366 / 3366 -1350 / -1350 34 / 34 -3 / -3 Weight 265 lb 5 oz 265 lb 5.009 oz Narrative: Patient is pleasant and talkative, alert. Oriented x3. Abdomen soft and nontender. Heart rate regular. Lungs are clear. Oropharynx clear. Able to move arms and legs well but is very weak still. Assessment and Plan (1) Rhabdomyolysis Current visit: Yes Status: Acute Qualifiers: Rhabdomyolysis type: traumatic Encounter type: initial encounter Qualified Code(s): T79.6XXA - Traumatic ischemia of muscle, initial encounter Category: Medical Code(s): M62.82 - Rhabdomyolysis (2) Morbid obesity with BMI of 40.0-44.9, adult Current visit: Yes Status: Chronic Category: Medical Code(s): E66.01 - Morbid (severe) obesity due to excess calories; Z68.41 - Body mass index (BMI) 40.0-44.9, adult (3) Change in mental status Current visit: Yes Status: Resolved Category: Medical Code(s): R41.82 - Altered mental status, unspecified (4) Chronic narcotic use Current visit: Yes Status: Acute Category: Medical Code(s): F11.90 - Opioid use, unspecified, uncomplicated (5) Weakness Current visit: Yes Status: Acute Category: Medical Code(s): R53.1 - Weakness (6) Anemia associated with nutritional deficiency Current visit: Yes Status: Acute Category: Medical Code(s): D53.9 - Nutritional anemia, unspecified (7) Diarrhea Current visit: Yes Status: Acute Qualifiers: Diarrhea type: unspecified type Qualified Code(s): R19.7 - Diarrhea, unspecified Category: Medical Code(s): R19.7 - Diarrhea, unspecified (8) Hypokalemia Current visit: Yes Status: Acute Category: Medical Code(s): E87.6 - Hypokalemia - Assessment and plan all Dx Assessment and Plan for all problems:: Electrolyte issues improved. Anticipate transfer to skilled care facility today.
--- NOTE | 2018-04-10 09:00 | Discharge Summary ---
General - General Admission date:: 04/05/18 Discharge date: 04/10/18 HPI HPI: 78-year-old white female who follows with a family practitioner in [place], [place], but has lived in [facility] for the past 20 years, presented to the hospital with her family after having 10 days of a significant change in her health status. and daughter reports that 2 weeks ago she saw her family practitioner for her normal healthcare status visit, at which time she was noted to have some increasing lower extremity edema. Her indapamide was continued, and she was prescribed ciprofloxacin for a urinary tract infection. She improved but over the next for 5 days again to have increasing lower extremity edema, increasing somnolence and increasing problems with movement. She fell down at home while sliding out of her chair and with a great deal of difficulty her family was able to get her back into her chair. Since that time her reports that she is "not gotten up." He states that she has been sleeping quite a bit and quite simply has not felt like getting up and moving around. Family reports that they contacted her family practitioner who recommended increasing her indapamide to help with swelling but this did not really help. She slid out of her chair again yesterday, and they were unable to get her up and she laid on the floor for several hours. They were able to get her into a bed yesterday evening but she complained of pain and was brought to the emergency department. In the emergency department she was found to be somnolent but arousable. Extensive workup showed no evidence of fractures in her spine, hips or other bony extremities but did have extensive bone spurring and evidence of spinal stenosis. CT scan of the head showed age-related spots but no significant acute infarct changes. Significantly, she was found to have rhabdomyolysis with highly elevated CPK level and was admitted to hospital for hydration, further evaluation of functional status. Hospital Course Hospital Course: Patient was admitted to hospital. Narcotic therapy was held and she was given IV fluids because of her electrolyte abnormalities and her rhabdomyolysis. Potassium was replaced orally. Over the next 3 days her CPK improved in a stepwise fashion as did her potassium. PT evaluated her and felt that she would do well with skilled rehabilitation stay for a couple of weeks. She was accepted at a facility and she will be transferred there today for PT/OT evaluation. Please note that she will need basic metabolic panel and a CBC in 3 days to monitor potassium levels. Objective Vital signs: Temp Pulse Resp BP Pulse Ox 98.6 F 66 16 154/77 H 98 04/10/18 08:00 04/10/18 08:00 04/10/18 08:00 04/10/18 08:00 04/10/18 08:00 Narrative: Patient is pleasant, oriented x3. Very weak but has no focal neurologic deficits. Oropharynx clear. No JVD. Heart rate regular without murmurs or gallops. Abdomen soft and nontender. No edema. Morbid obesity complicates her exam and limits all aspects of her care. No skin rash or skin breakdown today. Results Labs on day of discharge: Labs from last 24 hours 04/10/18 04/10/18 04/05/18 05:50 05:50 17:50 WBC 4.8 RBC 3.28 L Hgb 9.9 L Hct 31.5 L MCV 95.9 MCH 30.3 MCHC 31.6 L RDW 12.4 Plt Count 349 MPV 6.4 L Neut % (Auto) 64.3 Lymph % (Auto) 24.6 [place] % (Auto) 6.4 Eos % (Auto) 4.0 Baso % (Auto) 0.7 Neut # (Auto) 3.1 Lymph # (Auto) 1.2 [place] # (Auto) 0.3 Eos # (Auto) 0.2 Baso # (Auto) 0.0 Sodium 142 Potassium 3.6 Chloride 107 Carbon Dioxide 29 Anion Gap 9.6 BUN 4 L D Creatinine 0.65 Estimated Creat Clear 45 Estimated GFR 89 Est GFR ( Amer) 107 Glucose 94 Calcium 8.8 Total Bilirubin 0.4 AST 15 D ALT 22 Alkaline Phosphatase 62 Total Protein 5.6 L Albumin 2.5 L Globulin 3.1 Albumin/Globulin Ratio 0.8 L Whole Blood Arsenic 8 Whole Blood Lead 2 WB Mercury ug/L None detected DS: Diagnosis - Discharge Diagnosis (1) Rhabdomyolysis Status: Resolved (2) Morbid obesity with BMI of 40.0-44.9, adult Status: Chronic (3) Change in mental status Status: Resolved (4) Chronic narcotic use Status: Chronic (5) Weakness Status: Chronic (6) Anemia associated with nutritional deficiency Status: Chronic (7) Hypokalemia Status: Resolved Discharge Plan - Patient Discharge Instructions ACTIVITY: Continue current activity DIET: continue same diet Patient Instructions: DI for Muscle Weakness, DI for Rhabdomyolysis, DI for Altered Mental Status - Follow up Plan Disposition: er [facility] Home Medications: Home Medications Medication Instructions Recorded Confirmed Type Cholecalciferol (Vitd3)/Vit K2 [D3 1 each PO DAILY 04/05/18 04/05/18 History + K2 Dots 1,000 Units Tab] Indapamide 1.25 mg PO BID 04/05/18 04/06/18 History Iron,Carb/Vit C/Vit B12/Folic 1 each PO DAILY 04/05/18 04/05/18 History [Iron 100 Plus Tablet] Lisinopril [Lisinopril 40mg Tablet] 40 mg PO DAILY 04/05/18 04/06/18 History Oxybutynin Chloride [Ditropan Xl] 5 mg PO BID 04/05/18 04/05/18 History Oxycodone HCl [Oxycodone (IR) 5mg 5 mg PO Q4HWA PRN 04/05/18 04/05/18 History Cap] Pravastatin Sodium [Pravachol 40mg 40 mg PO DAILY 04/05/18 04/05/18 History Tablet] Amlodipine Besylate 5 mg PO DAILY 04/06/18 04/06/18 History Prescriptions/Medication Reconciliation: Continue Lisinopril [Lisinopril 40mg Tablet] 40 mg PO DAILY Pravastatin Sodium [Pravachol 40mg Tablet] 40 mg PO DAILY Iron,Carb/Vit C/Vit B12/Folic [Iron 100 Plus Tablet] 1 each PO DAILY Oxybutynin Chloride [Ditropan Xl] 5 mg PO BID Cholecalciferol (Vitd3)/Vit K2 [D3 + K2 Dots 1,000 Units Tab] 1 each PO DAILY Amlodipine Besylate 5 mg PO DAILY Discontinued Indapamide 1.25 mg PO BID Oxycodone HCl [Oxycodone (IR) 5mg Cap] 5 mg PO Q4HWA PRN PRN Reason: As Needed For Fever Or Pain
--- NOTE | 2018-04-11 07:58 | Progress Note ---
Internal Medicine - PN: Subj *Date: 04/11/18 *Time: 07:57 Interval history: Patient feels well. No changes in plan Exam Vital signs and Labs for Last 24 Hours: Temp Pulse Resp BP Pulse Ox 98.3 F 70 16 134/66 97 04/11/18 04:00 04/11/18 04:00 04/11/18 04:00 04/11/18 04:00 04/11/18 04:00 I & O for Last 24 hours: Intake & Output 04/08/18 04/09/18 04/10/18 04/11/18 11:59 11:59 11:59 11:59 Intake Total 600 / 600 1909 / 1909 1857 / 1857 840 / 840 Output Total 1950 / 1950 1875 / 1875 2700 / 2700 2900 / 2900 Balance -1350 / -1350 34 / 34 -843 / -843 -2060 / -2060 Weight 265 lb 5.009 oz 266 lb 8 oz Narrative: Pleasant, talkative, no changes as yesterday. Heart rate regular, lungs clear, oropharynx clear, neurologic exam nonfocal but weak Assessment and Plan (1) Rhabdomyolysis Current visit: Yes Status: Resolved Qualifiers: Rhabdomyolysis type: traumatic Encounter type: initial encounter Qualified Code(s): T79.6XXA - Traumatic ischemia of muscle, initial encounter Category: Medical Code(s): M62.82 - Rhabdomyolysis (2) Morbid obesity with BMI of 40.0-44.9, adult Current visit: Yes Status: Chronic Category: Medical Code(s): E66.01 - Morbid (severe) obesity due to excess calories; Z68.41 - Body mass index (BMI) 40.0-44.9, adult (3) Change in mental status Current visit: Yes Status: Resolved Category: Medical Code(s): R41.82 - Altered mental status, unspecified (4) Chronic narcotic use Current visit: Yes Status: Chronic Category: Medical Code(s): F11.90 - Opioid use, unspecified, uncomplicated (5) Weakness Current visit: Yes Status: Chronic Category: Medical Code(s): R53.1 - Weakness (6) Anemia associated with nutritional deficiency Current visit: Yes Status: Chronic Category: Medical Code(s): D53.9 - Nutritional anemia, unspecified (7) Hypokalemia Current visit: Yes Status: Resolved Category: Medical Code(s): E87.6 - Hypokalemia - Assessment and plan all Dx Assessment and Plan for all problems:: Await presentation from insurance for assisted placed
[2018-04-12 06:37] LABS: Basophils % 0.5 % (0.1-2.0); Eosinophils # 0.2 K/mm3 (0.0-0.4); Hematocrit 35.2 % (37.0-47.0); Lymphocytes # 1.1 K/mm3 (0.7-4.5); Lymphocytes % 22.3 % (10-50); Mean Corpuscular HGB Conc 31.3 g/dL (31.8-35.4); Mean Corpuscular Hemoglobin 30.1 pg (27.0-31.2); Mean Corpuscular Volume 96.2 fl (81-99); Mean Platelet Volume 6.6 fl (7.4-10.4); Monocytes # 0.3 K/mm3 (0.1-1.0); Monocytes % 6.3 % (1.7-9.3); Neutrophils # 3.5 K/mm3 (1.8-7.8); Neutrophils % 67.8 % (37.0-80.0); Platelet Count 368 K/mm3 (142-424); Red Blood Count 3.66 M/mm3 (4.20-5.40); Red Cell Distribution Width 12.6 % (11.5-17.5); White Blood Count 5.1 K/mm3 (4.8-10.8)
[2018-04-12 06:39] LABS: Calcium 9.2 mg/dL (8.5-10.1)
--- NOTE | 2018-04-12 08:25 | Progress Note ---
Internal Medicine - PN: Subj *Date: 04/12/18 *Time: 08:25 Interval history: No acute events overnight. hemodynamically stable. Tolerating regular diet. No N/V, CP, SOA. working with PT. Exam Vital signs and Labs for Last 24 Hours: Temp Pulse Resp BP Pulse Ox 98.8 F 65 16 144/68 H 98 04/12/18 04:00 04/12/18 04:00 04/12/18 04:00 04/12/18 04:00 04/12/18 04:00 Laboratory Results - last 24 hr 04/12/18 05:44: WBC 5.1, RBC 3.66 L, Hgb 11.0 L, Hct 35.2 L, MCV 96.2, MCH 30.1, MCHC 31.3 L, RDW 12.6, Plt Count 368, MPV 6.6 L, Neut % (Auto) 67.8, Lymph % (Auto) 22.3, [place] % (Auto) 6.3, Eos % (Auto) 3.0, Baso % (Auto) 0.5, Neut # (Auto) 3.5, Lymph # (Auto) 1.1, [place] # (Auto) 0.3, Eos # (Auto) 0.2, Baso # (Auto) 0.0 04/12/18 05:44: Sodium 142, Potassium 4.0, Chloride 104, Carbon Dioxide 30, Anion Gap 12.0, BUN 5 L, Creatinine 0.74, Estimated Creat Clear 45, Estimated GFR 76, Est GFR ( Amer) 92, Glucose 94, Calcium 9.2 I & O for Last 24 hours: Intake & Output 04/09/18 04/10/18 04/11/18 04/12/18 23:59 23:59 23:59 23:59 Intake Total 2401 / 2401 1725 / 1725 960 / 960 Output Total 1600 / 1600 3450 / 3450 2400 / 2400 950 / 950 Balance 801 / 801 -1725 / -1725 -1440 / -1440 -950 / -950 Weight 120.882 kg Narrative: Pleasant, talkative, no changes as yesterday. in Bedside chair on exam Heart rate regular, lungs clear, oropharynx clear, neurologic exam nonfocal but weak Assessment and Plan (1) Rhabdomyolysis Current visit: Yes Status: Resolved Qualifiers: Rhabdomyolysis type: traumatic Encounter type: initial encounter Qualified Code(s): T79.6XXA - Traumatic ischemia of muscle, initial encounter Category: Medical Code(s): M62.82 - Rhabdomyolysis (2) Morbid obesity with BMI of 40.0-44.9, adult Current visit: Yes Status: Chronic Category: Medical Code(s): E66.01 - Morbid (severe) obesity due to excess calories; Z68.41 - Body mass index (BMI) 40.0-44.9, adult (3) Change in mental status Current visit: Yes Status: Resolved Category: Medical Code(s): R41.82 - Altered mental status, unspecified (4) Chronic narcotic use Current visit: Yes Status: Chronic Category: Medical Code(s): F11.90 - Opioid use, unspecified, uncomplicated (5) Weakness Current visit: Yes Status: Chronic Category: Medical Code(s): R53.1 - Weakness (6) Anemia associated with nutritional deficiency Current visit: Yes Status: Chronic Category: Medical Code(s): D53.9 - Nutritional anemia, unspecified (7) Hypokalemia Current visit: Yes Status: Resolved Category: Medical Code(s): E87.6 - Hypokalemia - Assessment and plan all Dx Assessment and Plan for all problems:: No changes to management. Continues to await insurance PreCert for placement at [facility]
== END 2018-04-12 18:00 | DRG 565 ==
LOC: ER 09:27 → 2ND 14:54
PROVIDERS: ADMIT Internal Medicine Adolescent Medicine; ATTEND Internal Medicine Adolescent Medicine

== ENCOUNTER → 2019-05-27 13:34 | Outpatient (CLI) | payer MEDICARE, SELFPAY ==
[2019-05-27 14:48] LABS: Chloride 99 mmol/L (98-107)
[2019-05-27 14:49] LABS: Potassium 4.6 mmoL/L (3.5-5.1); Sodium 138 mmol/L (136-145)
[2019-05-27 14:51] LABS: Alanine Aminotransferase 11 U/L (12-78); Anion Gap 12.6 mEq/L (5-15); Aspartate Amino Transferase 19 U/L (14-36); Blood Urea Nitrogen 19 mg/dl (7-17); Carbon Dioxide 31 mmol/L (22.0-30.0); Estimated Glomerular Filt Rate 61 ml/min (>60); GFR (African American) 73 ML/MIN (>60)
[2019-05-27 14:52] LABS: Albumin/Globulin Ratio 1.4 (1.1-1.8); Alkaline Phosphatase 77 U/L (38-126); Bilirubin,Total 0.5 mg/dl (0.2-1.3); Calcium 10.4 mg/dl (8.4-10.2); Chol/HDL Ratio 3.1 (1-3.5); Cholesterol 176 mg/dl (140-200); Globulin 2.9 g/dL (1.3-3.2); Glucose 116 mg/dl (74-100); HDL Cholesterol 57 mg/dl (40-60); Total Protein,Serum 6.9 g/dl (6.3-8.2); Triglycerides 155 mg/dl (30-150); VLDL Cholesterol 31 mg/dL (0-40)
[2019-05-27 15:03] LABS: Direct LDL Cholesterol 94.62 mg/dL (100-129)
[2019-05-27 15:11] LABS: T4 (Thyroxine) 10.1 ug/dl (5.53-11.0)
[2019-05-27 15:23] LABS: Thyroid Stimulating Hormone 1.78 uIU/mL (0.465-4.68)
[2019-05-27 15:52] LABS: Basophils % 0.4 % (0.1-2.0); Eosinophils # 0.1 K/mm3 (0.0-0.4); Eosinophils % 1.6 % (0.1-12.0); Hematocrit 40.4 % (37.0-47.0); Hemoglobin 12.5 g/dL (12.2-16.2); Lymphocytes # 1.5 K/mm3 (0.7-4.5); Lymphocytes % 18.4 % (10-50); Mean Corpuscular HGB Conc 30.9 g/dL (31.8-35.4); Mean Corpuscular Hemoglobin 29.3 pg (27.0-31.2); Mean Corpuscular Volume 94.7 fl (81-99); Mean Platelet Volume 8.4 fl (7.4-10.4); Monocytes # 0.4 K/mm3 (0.1-1.0); Monocytes % 5.2 % (1.7-9.3); Neutrophils % 74.3 % (37.0-80.0); Platelet Count 413 K/mm3 (142-424); Red Blood Count 4.26 M/mm3 (4.20-5.40); Red Cell Distribution Width 12.4 % (11.5-17.5)
[2019-05-29 13:11] LABS: Vitamin D 25 Hydroxy 31.3 ng/mL (30.0-100.0)
== END ==
PROVIDERS: Visit Provider Emergency Medicine
DX: R53.1 Weakness; E66.01 Morbid (severe) obesity due to excess calories; Z68.41 Body mass index [BMI] 40.0-44.9, adult
CPT/HCPCS: 80053; 80061; 82652; 84436; 84443; 85025

== ENCOUNTER → 2019-08-06 14:35 | Outpatient (CLI) | payer MEDICARE, SELFPAY ==
--- NOTE | 2019-08-06 14:37 | CA_ITS ---
APPROVED REPORT Left Lower Extremity Venous Study for DVT. Dog Sitter: PALMER Indications Lower Extremity Pain: Lower Extremity Edema: Left edema and pain Risk Factors Immobility Obesity Denies trauma. Patient Vein Imaging CFV (L): compressive, spontaneous, phasic, augmentation FEM (L): compressive, spontaneous, phasic, augmentation POP (L): compressive, spontaneous, phasic, augmentation PTV (L): Compressible GSV (L): compressive, spontaneous, phasic, augmentation SSV (L): Compressible Peroneals (L):Compressible GAS (L): Compressible Findings No evidence of DVT or superficial thrombophlebitis in the veins scanned of the left lower extremity. Conclusion No evidence of DVT or superficial thrombophlebitis in the veins scanned of the left lower extremity. Electronically signed by : Triston English MD 08/06/2019 16:13:13
== END ==
PROVIDERS: PCP Emergency Medicine; Visit Provider Physician Assistant
DX: R60.0 Localized edema (principal)
CPT/HCPCS: 93971

== ENCOUNTER → 2019-11-20 14:19 | Outpatient (CLI) | payer MEDICARE, SELFPAY ==
--- NOTE | 2019-11-20 14:20 | CA_ITS ---
APPROVED REPORT EXAM: Comprehensive 2D, Doppler, and color-flow Echocardiogram Service Administrator: Frances Gaona CRT Ht: 5 ft 6 in Wt: 239lbs BSA: 2.16 BP: 125/50 mmHg Indications: Shortness of Breath, Fatigue, Hyperlipidemia, Hypertension/HDD, abn ekg, tia, bradycardia 2D Dimensions LVOT 2.09 cm (M/F) 1.5-2.5 M-Mode Dimensions RVDd 2.55 cm (0.9-2.6) LVDd 5.44 cm (3.5-5.7) LVDs 4.24 cm (3.5-5.7) IVSd 1.36 cm (0.6-1.1) PWd 0.89 cm (0.6-1.1) EF (Teich) 44.10% FS 22.10% EDV (Teich) 143.70 mL ESV (Teich) 80.40 mL LV Diastology E/A Ratio 1.32 Mitral Valve MV A Velocity 68.00 (40-130 cm/s) Left Ventricle Left atrium is mildly enlarged, left ventricle is normal size, mild concentric left ventricular hypertrophy, visually estimated ejection fraction 55% with no regional wall motion abnormality, grade 1 diastolic dysfunction seen without tissue Doppler evidence of raise left atrial pressure. Right Ventricle Right atrium and right ventricle mildly enlarged with normal contractility. Aortic Valve Aortic valve is minimally thickened and fibrosed, there is no aortic stenosis or aortic insufficiency. Mitral Valve Mitral valve leaflets are minimally thickened, there is mild mitral regurgitation. Tricuspid Valve Tricuspid valve is grossly normal, there is mild tricuspid regurgitation, tricuspid regurgitation jet velocity is inadequate for calculation of the right ventricular systolic pressure. Pulmonic Valve Pulmonic valve is poorly visualized. Great Vessels Aortic root is normal size. Pericardium No significant pericardial effusion noted. Conclusion 1. Mild biatrial enlargement, normal left ventricular size, mild concentric left ventricular hypertrophy, visually estimated ejection fraction 55% with no regional wall motion abnormality, grade 1 diastolic dysfunction seen without tissue Doppler evidence of raise left atrial pressure. 2. Mildly enlarged right ventricle with normal contractility. 3. Mild mitral and tricuspid regurgitation. 4. No significant pericardial effusion noted. Electronically signed by : Marino Luis, 11/20/2019 15:27:45
[2019-11-20 16:44] LABS: Chloride 99 mmol/L (98-107); Sodium 139 mmol/L (136-145)
[2019-11-20 16:45] LABS: Potassium 4.4 mmoL/L (3.5-5.1)
[2019-11-20 16:47] LABS: Blood Urea Nitrogen 19 mg/dl (7-17); Estimated Glomerular Filt Rate 61 ml/min (>60); GFR (African American) 73 ML/MIN (>60)
[2019-11-20 16:48] LABS: Anion Gap 12.4 mEq/L (5-15); Calcium 10.2 mg/dl (8.4-10.2); Carbon Dioxide 32 mmol/L (22.0-30.0); Glucose 113 mg/dl (74-100)
[2019-11-20 16:49] LABS: NT Pro Brain Natriuretic Pep. 276 pg/mL (0-450)
== END ==
PROVIDERS: Nurse Practitioner Family; PCP Emergency Medicine; Visit Provider Internal Medicine Cardiovascular Disease
DX: R60.0 Localized edema (principal); R94.31 Abnormal electrocardiogram [ECG] [EKG]; R00.1 Bradycardia, unspecified; I50.9 Heart failure, unspecified
CPT/HCPCS: 36415; 80048; 83880; 93225; 93306

== ENCOUNTER 2020-03-20 09:42 | Observation (INO) | payer MEDICARE, SELFPAY ==
[2020-03-20] VITALS (11 sets, daily range): BP systolic 128–171; BP diastolic 57–87; PULSE 74–86; RESP 17–20; TEMP 36.8–37; O2SAT 92–96; BMI 40.1; BMI 40.3; BMI 41.0
--- NOTE | 2020-03-20 09:48 | HMH.EDGENADL ---
ED Disposition Clinical Impression: Peripheral edema, Weakness Disposition: Admitted as Observation Condition on Discharge: Fair - Critical Care Critical Care Time: No Attestation: On , the high probability of a clinically significant, sudden or life threatening deterioration of the following system(s) required my full and direct attention, intervention and personal management. The time I documented below is in addition to time spent performing reported procedures but includes the following listed in this critical care notation. Medical Decision Making - Medical Records Medical records reviewed: Yes: I reviewed the patient's medical records. MR Comment: Reviewed cardiology office visit from 03/18/2020. Patient complained of low blood pressure and edema. Amlodipine was stopped for these concerns. BP syst 111 on that visit. Reviewed most recent echocardiogram report. See below. - Boogie Inquiry Pt receiving controlled substance: No Vital Signs: 03/20/20 09:43 03/20/20 10:11 03/20/20 10:26 Temperature 98.3 F Temperature Source Oral Pulse Rate [Left Radial] 84 82 81 Respiratory Rate 18 Blood Pressure [Left Arm] 152/68 H 136/61 149/86 H Blood Pressure Mean [Left Arm] 96 86 107 Blood Pressure Source [Left Arm] Automatic Cuff Automatic Cuff Automatic Cuff Blood Pressure Position [Left Arm] Sitting Sitting Sitting 02 Sat by Pulse Oximetry 96 95 95 Oxygen Delivery Method Room Air Room Air Room Air 03/20/20 10:46 03/20/20 11:25 03/20/20 12:19 Temperature Temperature Source Pulse Rate [Left Radial] 85 78 80 Respiratory Rate Blood Pressure [Left Arm] 149/86 H 160/57 H 154/78 H Blood Pressure Mean [Left Arm] 107 91 103 Blood Pressure Source [Left Arm] Automatic Cuff Automatic Cuff Automatic Cuff Blood Pressure Position [Left Arm] Sitting Sitting Sitting 02 Sat by Pulse Oximetry 94 L 94 L 95 Oxygen Delivery Method Room Air Room Air Room Air 03/20/20 12:33 Temperature Temperature Source Pulse Rate [Left Radial] 80 Respiratory Rate Blood Pressure [Left Arm] 171/87 H Blood Pressure Mean [Left Arm] 115 Blood Pressure Source [Left Arm] Automatic Cuff Blood Pressure Position [Left Arm] Sitting 02 Sat by Pulse Oximetry 95 Oxygen Delivery Method Room Air - Lab Data Lab results reviewed: Yes: I reviewed the patient's lab results. Lab Results 03/20/20 09:50: WBC 9.0, RBC 4.07 L, Hgb 12.2, Hct 38.5, MCV 94.5, MCH 29.9, MCHC 31.7 L, RDW 12.9, Plt Count 311, MPV 7.6, Neut % (Auto) 86.4 H, Lymph % (Auto) 7.7 L, [place] % (Auto) 4.3, Eos % (Auto) 1.2, Baso % (Auto) 0.3, Neut # (Auto) 7.8, Lymph # (Auto) 0.7, [place] # (Auto) 0.4, Eos # (Auto) 0.1, Baso # (Auto) 0.0, Total Counted 100, Neutrophils % (Manual) 85 H, Band Neutrophils % 1.0, Lymphocytes % (Manual) 8 L, Monocytes % (Manual) 6, Platelet Estimate Normal, RBC Morphology Normal 03/20/20 09:50: Sodium 135 L, Potassium 3.7, Chloride 97 L, Carbon Dioxide 31 H, Anion Gap 10.7, BUN 17, Creatinine 0.80, Estimated Creat Clear 83, Estimated GFR 69, Est GFR ( Amer) 84, Glucose 187 H, Calcium 10.1, Total Bilirubin 1.1, AST 83 H, ALT 84 H, Alkaline Phosphatase 106, Total Creatine Kinase 255 H, CK-MB (CK-2) 2.6 H, CK-MB (CK-2) Rel Index 1.0, Troponin I 0.03, Total Protein 7.6, Albumin 4.1, Globulin 3.5 H, Albumin/Globulin Ratio 1.2 03/20/20 09:50: SARS-CoV-2 IgG Ab (Rapid) Negative, SARS-CoV-2 IgM Ab (Rapid) Negative 03/20/20 09:50: NT-Pro-B Natriuret Pep 996 H 03/20/20 09:50: Iron 29 L, TIBC 300, Iron Saturation 9.57670 L, TSH 1.52 03/20/20 10:44: Urine Color Yellow, Urine Appearance Slightly cloudy, Urine pH 6.0, Ur Specific Peck 1.025, Urine Protein Negative, Urine Glucose (UA) Negative, Urine Ketones Negative, Urine Blood Trace-l, Urine Nitrate Positive, Urine Bilirubin Negative, Urine Urobilinogen 4.0, Ur Leukocyte Esterase Negative, Urine RBC 3-5, Urine WBC 3-5, Ur Squamous Epith Cells 3-5, Urine Bacteria Trace Result diagrams: 03/20/20 09:50 03/20/20 09:
--- NOTE | 2020-03-20 09:52 | PC.NURSE ---
Pt at bedside
--- NOTE | 2020-03-20 10:11 | XR_ITS ---
PROCEDURE: XR CHEST PORTABLE CLINICAL HISTORY: swelling, weakness COMPARISON: CR CXR1VP XR chest portable from 04/05/2018 FINDINGS: Heart size is normal. There is minimal undulation along the left heart border superiorly which may be related to prominent pulmonary artery. This is not significantly changed. The lungs are clear without infiltrates, suspicious nodules, or pleural effusions. There are surgical clips in the left and right upper quadrant No acute bony abnormalities. IMPRESSION: No change with no acute finding Dictated by: Triston English MD 03/20/2020 10:38 Triston English MD in [place] 03/20/2020 10:38
[2020-03-20 10:29] LABS: Chloride 97 mmol/L (98-107); Potassium 3.7 mmoL/L (3.5-5.1); Sodium 135 mmol/L (136-145)
[2020-03-20 10:32] LABS: Alanine Aminotransferase 84 U/L (12-78); Albumin Level 4.1 g/dl (3.5-5.0); Albumin/Globulin Ratio 1.2 (1.1-1.8); Alkaline Phosphatase 106 U/L (38-126); Anion Gap 10.7 mEq/L (5-15); Aspartate Amino Transferase 83 U/L (14-36); Basophils % 0.3 % (0.1-2.0); Bilirubin,Total 1.1 mg/dl (0.2-1.3); Blood Urea Nitrogen 17 mg/dl (7-17); Calcium 10.1 mg/dl (8.4-10.2); Carbon Dioxide 31 mmol/L (22.0-30.0); Creatine Kinase 255 U/L (30-135); Creatinine Clearance Estimated 83 mL/min (50-200); Eosinophils # 0.1 K/mm3 (0.0-0.4); Eosinophils % 1.2 % (0.1-12.0); Estimated Glomerular Filt Rate 69 ml/min (>60); GFR (African American) 84 ML/MIN (>60); Globulin 3.5 g/dL (1.3-3.2); Glucose 187 mg/dl (74-100); Hematocrit 38.5 % (37.0-47.0); Hemoglobin 12.2 g/dL (12.2-16.2); Lymphocytes # 0.7 K/mm3 (0.7-4.5); Lymphocytes % 7.7 % (10-50); Mean Corpuscular HGB Conc 31.7 g/dL (31.8-35.4); Mean Corpuscular Hemoglobin 29.9 pg (27.0-31.2); Mean Corpuscular Volume 94.5 fl (81-99); Mean Platelet Volume 7.6 fl (7.4-10.4); Monocytes # 0.4 K/mm3 (0.1-1.0); Monocytes % 4.3 % (1.7-9.3); Neutrophils # 7.8 K/mm3 (1.8-7.8); Neutrophils % 86.4 % (37.0-80.0); Platelet Count 311 K/mm3 (142-424); Red Blood Count 4.07 M/mm3 (4.20-5.40); Red Cell Distribution Width 12.9 % (11.5-17.5); Total Protein,Serum 7.6 g/dl (6.3-8.2)
[2020-03-20 10:34] LABS: MANUAL DIFFERENTIAL MANUAL DIFFERENTIAL (MANUAL DIFF)
[2020-03-20 10:42] LABS: Creatine Kinase MB 2.6 ng/ml (0.0-2.03)
[2020-03-20 10:45] LABS: Troponin I 0.03 ng/ml (0.00-0.034)
[2020-03-20 10:48] LABS: Lymphocytes % 8 % (10-50); Monocytes % 6 % (2-9); Neutrophils % 85 % (42-76); Platelet Estimate Normal; RBC Morphology Normal; Total Cells Counted 100
[2020-03-20 10:52] LABS: Microscopic, Urine URINE MICROSCOPIC (MICROSCOPIC)
[2020-03-20 10:53] LABS: Coronavirus 19 IgG Antibody Negative (Negative); Coronavirus 19 IgM Antibody Negative (Negative)
--- NOTE | 2020-03-20 10:55 | ECG_ITS ---
APPROVED REPORT Exam: Resting ECG HR:81 bpm ECG Measurements Heart Rate 81 AXES OR 166 P 70 QRSd 86 QRS 52 QT 398 T 20 QTc 462 Conclusion Normal sinus rhythm Normal ECG Electronically signed by : Eloy Conn, 03/20/2020 19:34:54
[2020-03-20 10:57] LABS: Bilirubin,Urine Negative (Negative); Blood, Urine TRACE-L (Negative); Glucose,Urine (UA) Negative (Negative); Ketones,Urine Negative (Negative); Leukocyte Esterase,Urine Negative (Negative); Nitrate,Urine POSITIVE (Negative); Protein,Urine Negative (Negative); Specific Gravity, Urine 1.025 (1.005-1.030)
[2020-03-20 11:01] LABS: Appearance,Urine Slightly Cloudy (Clear); Color,Urine YELLOW (Yellow)
[2020-03-20 11:07] LABS: Bacteria,Urine Trace /lpf
--- NOTE | 2020-03-20 11:41 | PC.NURSE ---
ER at speaking with pt family about POC
--- NOTE | 2020-03-20 11:46 | PC.NURSE ---
Dr Jenna martel who is ventilation worker for Dr Lau.
--- NOTE | 2020-03-20 11:48 | PC.NURSE ---
Addendum entered by Lashanda Meier RN 03/20/20 11:49: Dr. West is carbon capture power plant operator Dr. Lau Original Note: PATRICIA RICHRADS speaking with Dr. West
--- NOTE | 2020-03-20 11:56 | PC.NURSE ---
notified housekeeper and laundry assistant of admission information
[2020-03-20 12:11] LABS: NT Pro Brain Natriuretic Pep. 996 pg/mL (0-450)
--- NOTE | 2020-03-20 12:32 | HMH.PHAVTE ---
[facility] Pharmacy VTE Monitoring - Patient Demographics Admission date: 03/20/20 Report Date: 03/20/20 Time: 12:32 Allergies/Adverse Reactions: Patient Allergies Penicillins Adverse Reaction (Intermediate, Verified 03/18/20 11:30) Height: 1.68 m Weight: 113.398 kg Patient Problems: Current Active Problems Peripheral edema (Acute) Weakness (Chronic) - VTE Risk Labs: VTE Related Lab Results Hgb 12.2 g/dL (12.2-16.2) 03/20/20 09:50 Hct 38.5 % (37.0-47.0) 03/20/20 09:50 Plt Count 311 K/mm3 (142-424) 03/20/20 09:50 BUN 17 mg/dl (7-17) 03/20/20 09:50 Creatinine 0.80 mg/dl (0.52-1.04) 03/20/20 09:50 Estimated Creat Clear 83 mL/min (50-200) 03/20/20 09:50 - Prophylaxis VTE Prophylaxis Ordered?: Yes Types of VTE Prophylaxis: TEDS Knee High Location of Applied Device: Bilateral Lower Extremeties
--- NOTE | 2020-03-20 12:43 | PC.NURSE ---
report given to erumrn
--- NOTE | 2020-03-20 12:44 | PC.NURSE ---
per daughter after pts appt with cardiology on , states she got home checked pts medications, pt had already stopped amlodipine at an unknown time. Pt daughter states she called cardiology office to notify them of this, states they then told her to make changes to the way pt is taking Spironolactone. Pt now to take Spironolactone 50 mg on Sunday and Sunday of each week. notified ER MD of the above.No new orders obtained.
--- NOTE | 2020-03-20 12:58 | PC.NURSE ---
PT arrived to the floor at thistime.
--- NOTE | 2020-03-20 14:09 | HMH.PHAINT ---
MEDICATION RECONCILIATION COMPLETED ON PATIENT USING EXTERNAL FILL HISTORY FROM PHARMACY AND PATIENT'S OWN RX BOTTLES. -ELI BAERD
--- NOTE | 2020-03-20 14:19 | HMH.HP ---
*Admission Date: 03/20/20 *Chief complaint: weakness/volume overload *History of present illness: Patient was seen this morning, daughter was in the room. Most of the history comes from her. The story is 1 of progressive debility. The patient lives at home with an elderly , she has become progressively weak and unable to rise from a seated position. She requires care with all ADLs. The family has considered care home placement. Patient is actively followed by Dr. Sharp. Her diuretic regimen was recently changed. She has issues with ongoing edema. He denies active chest pain, dyspnea, orthopnea. She has been eating well, no abdominal pain or emesis. She did sustain a fall, has ecchymosis to bilateral great toes. Are no palpable bony changes, but she is tender on the right great toe. Her distal perfusion is adequate, there is no ischemic demarcation. She is awake, alert. Is in no significant distress. Her emergency room work-up included imaging of the chest. Results are as follows. Heart size is normal. There is minimal undulation along the left heart border superiorly which may be related to prominent pulmonary artery. This is not significantly changed. The lungs are clear without infiltrates, suspicious nodules, or pleural effusions. There are surgical clips in the left and right upper quadrant No acute bony abnormalities. IMPRESSION: No change with no acute finding Labs were done which showed nitrates in the urine and a slightly elevated pro BNP. I think her biggest issues during this hospitalization will be progressive debility, need for care home placement, and management of volume status. She has significant disuse atrophy of the skeletal muscle, and where she could previously ambulate a short distance she is no longer capable of that. [facility] History Medical History: Reports:: Hyperlipidemia, Hypertension, Transient Ischemic Attacks (TIA) Denies:: Cancer, Diabetes Mellitus Type 1, Diabetes Mellitus Type 2, MRSA *Have you ever received a pneumonia vaccine?: No *Have you received a flu vaccine this season?: No Other Medical History: Reports: Arthritis, Thyroid Disease Other Surgeries: Yes: Appendectomy, Bariatric Surgery, Cholecystectomy, Hysterectomy-Total Amputation: No Fractures: No - *Social History Smoking Status: Never smoker Alcohol Intake: never Substance Use Type: denies use *Occupational Status:: disabled Housing: house Household Members: children *Travel in the last 8 weeks: None Family Hx:: Hyperlipidemia, Hypertension, Stroke Review of Systems - Constitutional Reports lack of energy, Reports malaise, Denies chills - Eyes Denies change in vision - ENT Denies abnormal hearing, Denies difficulty swallowing - *Cardiovascular Reports shortness of breath with activity, Denies chest pain, Denies shortness of breath, Denies shortness of breath causing sudden awakening - *Respiratory Denies chest congestion - *Gastrointestinal Denies abdominal pain - *Genitourinary Denies painful urination - *Musculoskeletal Reports abnormal walking, Reports joint swelling, Reports limited joint movement, Reports muscle weakness, Denies numbness - Integumentary/Breasts Denies yellowing of the skin, Denies lesions - *Neurologic Reports abnormal walking, Reports unsteadiness, Reports frequent falls, Reports weakness, Denies confusion, Denies seizure-like activity, Denies localized weakness, Denies lack of coordination, Denies loss of vision - Psychiatric Denies confusion - Endocrine Denies cold intolerance - Hematologic/Lymphatic Denies easy bleeding - Allergic/Immunologic Denies wheezing Meds Home Medications Medication Instructions Recorded Confirmed Type Cholecalciferol (Vitd3)/Vit K2 [D3 1 each PO DAILY 04/05/18 04/13/20 History + K2 Dots 1,000 Units Tab] lisinopril 40 mg tablet 40 mg PO DAILY #90 tab 01/05/20 04/13/20 Rx Indapamide 1.25 mg PO BID 02/27
--- NOTE | 2020-03-20 14:39 | XR_ITS ---
PROCEDURE: XR FOOT LT 2V CLINICAL INDICATION: fall COMPARISON: No exams were available for comparison FINDINGS: Generalized osteopenia. No acute fracture or dislocation. Hammertoe deformity of the 2nd through 5th toes Other findings:None. IMPRESSION: No acute findings. Dictated by: Triston English MD 03/20/2020 18:11 Triston English MD in [place] 03/20/2020 18:11
--- NOTE | 2020-03-20 14:39 | XR_ITS ---
PROCEDURE: XR FOOT RT 2V CLINICAL INDICATION: fall Posttraumatic pain COMPARISON: No exams were available for comparison FINDINGS: No fracture or dislocation. No lytic or blastic change. There is normal mineralization. Generalized osteopenia with mild osteoarthritic changes Other findings:None. IMPRESSION: No acute findings. Dictated by: Triston English MD 03/20/2020 18:10 Triston English MD in [place] 03/20/2020 18:10
[2020-03-20 14:48] LABS: Iron 29 ug/dL (37-170)
[2020-03-20 14:57] LABS: Total Iron Binding Capacity 300 ug/dL (265-497)
[2020-03-20 15:21] LABS: Thyroid Stimulating Hormone 1.52 uIU/mL (0.465-4.68)
--- NOTE | 2020-03-20 15:29 | PC.NURSE ---
Confirmed with Dr. Babb that the cardiology consult is routine so it can wait till Sunday AM.
[2020-03-21 04:00] VITALS: BP 119/53; PULSE 72; RESP 18; TEMP 36.7; O2SAT 90
--- NOTE | 2020-03-21 04:51 | PC.NURSE ---
Lung sounds are CTA. 2+ non-pitting edema noted to BLE. Bruising noted to bilateral great toe. Pt has been a q2h turn and has been turned whenever pt requests to be turned. VSS. Jarrett cath is draining clear, dark yellow urine per gravity. PIV remains patent and is SL. No other acute changes or complaints at this time.
[2020-03-21 04:52] VITALS: BMI 39.2
--- NOTE | 2020-03-21 06:00 | XR_ITS ---
PROCEDURE: XR CHEST PORTABLE CLINICAL HISTORY: chf Follow-up CHF COMPARISON: CR CXR1VP XR chest portable from 04/05/2018 CR XR CHEST PORTABLE from 03/20/2020 FINDINGS: Borderline cardiomegaly without failure. Tortuosity of the descending thoracic aorta. No lobar consolidation or collapse. Degenerative changes of the shoulders. IMPRESSION: No change no acute Dictated by: Triston English MD 03/21/2020 07:11 Triston English MD in [place] 03/21/2020 07:11
[2020-03-21 08:00] VITALS: BP 121/50; PULSE 79; RESP 20; TEMP 36.8; O2SAT 94
[2020-03-21 08:41] LABS: Anion Gap 10.2 mEq/L (5-15); Blood Urea Nitrogen 17 mg/dl (7-17); Calcium 9.4 mg/dl (8.4-10.2); Carbon Dioxide 35 mmol/L (22.0-30.0); Chloride 91 mmol/L (98-107); Creatinine Clearance Estimated 81 mL/min (50-200); Estimated Glomerular Filt Rate 61 ml/min (>60); GFR (African American) 73 ML/MIN (>60); Glucose 192 mg/dl (74-100); Potassium 3.2 mmoL/L (3.5-5.1); Sodium 133 mmol/L (136-145)
--- NOTE | 2020-03-21 09:15 | HMH.ACPN2 ---
Internal Medicine - PN: Subj *Date: 03/22/20 *Time: 09:50 Interval history: doing better - no specific c/o Exam Vital signs and Labs for Last 24 Hours: Temp Pulse Resp BP Pulse Ox 98.2 F 79 20 121/50 L 94 L 03/21/20 08:00 03/21/20 08:00 03/21/20 08:00 03/21/20 08:00 03/21/20 08:00 Laboratory Results - last 24 hr 03/20/20 09:50: WBC 9.0, RBC 4.07 L, Hgb 12.2, Hct 38.5, MCV 94.5, MCH 29.9, MCHC 31.7 L, RDW 12.9, Plt Count 311, MPV 7.6, Neut % (Auto) 86.4 H, Lymph % (Auto) 7.7 L, Glades % (Auto) 4.3, Eos % (Auto) 1.2, Baso % (Auto) 0.3, Neut # (Auto) 7.8, Lymph # (Auto) 0.7, Glades # (Auto) 0.4, Eos # (Auto) 0.1, Baso # (Auto) 0.0, Total Counted 100, Neutrophils % (Manual) 85 H, Band Neutrophils % 1.0, Lymphocytes % (Manual) 8 L, Monocytes % (Manual) 6, Platelet Estimate Normal, RBC Morphology Normal 03/20/20 09:50: Sodium 135 L, Potassium 3.7, Chloride 97 L, Carbon Dioxide 31 H, Anion Gap 10.7, BUN 17, Creatinine 0.80, Estimated Creat Clear 83, Estimated GFR 69, Est GFR ( Amer) 84, Glucose 187 H, Calcium 10.1, Total Bilirubin 1.1, AST 83 H, ALT 84 H, Alkaline Phosphatase 106, Total Creatine Kinase 255 H, CK-MB (CK-2) 2.6 H, CK-MB (CK-2) Rel Index 1.0, Troponin I 0.03, Total Protein 7.6, Albumin 4.1, Globulin 3.5 H, Albumin/Globulin Ratio 1.2 03/20/20 09:50: SARS-CoV-2 IgG Ab (Rapid) Negative, SARS-CoV-2 IgM Ab (Rapid) Negative 03/20/20 09:50: NT-Pro-B Natriuret Pep 996 H 03/20/20 09:50: Iron 29 L, TIBC 300, Iron Saturation 9.42321 L, TSH 1.52 03/20/20 10:44: Urine Color Yellow, Urine Appearance Slightly cloudy, Urine pH 6.0, Ur Specific Spruce 1.025, Urine Protein Negative, Urine Glucose (UA) Negative, Urine Ketones Negative, Urine Blood Trace-l, Urine Nitrate Positive, Urine Bilirubin Negative, Urine Urobilinogen 4.0, Ur Leukocyte Esterase Negative, Urine RBC 3-5, Urine WBC 3-5, Ur Squamous Epith Cells 3-5, Urine Bacteria Trace 03/21/20 08:04: Sodium 133 L, Potassium 3.2 L, Chloride 91 L, Carbon Dioxide 35 H, Anion Gap 10.2, BUN 17, Creatinine 0.90, Estimated Creat Clear 81, Estimated GFR 61, Est GFR ( Amer) 73, Glucose 192 H, Calcium 9.4 I & O for Last 24 hours: Intake & Output 03/18/20 03/19/20 03/20/20 03/21/20 11:59 11:59 11:59 11:59 Intake Total 720 / 720 Output Total 1550 / 1550 Balance -830 / -830 Weight 250 lb 244 lb 3 oz - Constitutional no acute distress, obese - *Routine HEENT Exam Head: Present: normocephalic Eye: Present: EOMI, PERRL ENT: Present: mucous membranes dry - *Routine Neck Exam Present: supple. Absent: JVD - *Routine Respiratory Exam Present: CTA bilaterally - *Routine Cardiovascular Exam Present: RRR, murmur, S4 - *Routine Abdominal Exam Present: soft - *Routine Extremities Exam Absent: calf tenderness - *Routine Skin Exam Present: intact - *Routine Neurological Exam Present: alert, CN II-XII intact. Absent: sensory deficit - Routine Psychiatric Exam Present: normal affect Assessment and Plan (1) Peripheral edema Status: Acute Category: Medical Code(s): R60.9 - Edema, unspecified (2) Weakness Status: Chronic Category: Medical Code(s): R53.1 - Weakness (3) DJD (degenerative joint disease) Status: Acute Qualifiers: Osteoarthritis location: foot Osteoarthritis type: primary Laterality: bilateral Qualified Code(s): M19.071 - Primary osteoarthritis, right ankle and foot; M19.072 - Primary osteoarthritis, left ankle and foot Category: Medical Code(s): M19.90 - Unspecified osteoarthritis, unspecified site (4) Edema of both lower extremities Status: Acute Category: Medical Code(s): R60.0 - Localized edema (5) Fatigue Status: Acute Qualifiers: Fatigue type: unspecified Qualified Code(s): R53.83 - Other fatigue Category: Medical Code(s): R53.83 - Other fatigue (6) Obesity (BMI 30-39.9) Status: Acute Category: Medical Code(s): E66.9 - Obesity, unspecified (7) Risk for fall
--- NOTE | 2020-03-21 15:52 | PC.NURSE ---
no acute changes. pt given a bath today. turned q2hr as patient allowed. vss. will cont. to monitor.
[2020-03-21 16:00] VITALS: BP 125/75; PULSE 80; RESP 18; TEMP 36.8; O2SAT 97
[2020-03-21 20:00] VITALS: BP 136/73; PULSE 74; RESP 18; TEMP 37.1; O2SAT 100
[2020-03-22 04:00] VITALS: BP 149/65; PULSE 67; RESP 16; TEMP 36.6; O2SAT 93
[2020-03-22 05:39] VITALS: BMI 39.3
[2020-03-22 08:00] VITALS: BP 134/58; PULSE 69; RESP 18; TEMP 36.5; O2SAT 96
--- NOTE | 2020-03-22 08:00 | CA_ITS ---
APPROVED REPORT Rn Care Manager: Marge Villatoro RVT Laterality: Bilateral Study Quality: Good Indications: history tia Risk Factors Hypertension: TIA/CVA History Hyperlipidemia Doppler Spectral Velocity Analysis ECA (R) 109.10/7.50 cm/s ECA (L) 82.30/14.60 cm/s dICA (R) 67.40/21.40 cm/s dICA (L) 84.80/17.10 cm/s Vick (R) 78.10/23.50 cm/s Vick (L) 78.80/19.70 cm/s pICA (R) 88.80/18.20 cm/s pICA (L) 73.70/14.60 cm/s dCCA (R) 59.90/8.60 cm/s dCCA (L) 97.70/11.10 cm/s pCCA (R) 92.00/18.20 cm/s pCCA (L) 84.00/11.10 cm/s Vert (R) 36.00/7.70 cm/s Vert (L) 72.00/14.60 cm/s ICA/CCA 1.48 ICA/CCA 0.87 Findings Study suggests 20-49% stenosis of the right internal cartoid artery. Study suggests less than 20% stenosis of the left internal cartoid artery. Antegrade flow seen bilateral vertebral arteries. Conclusion Study suggests 20-49% stenosis of the right internal cartoid artery. Study suggests less than 20% stenosis of the left internal cartoid artery. Antegrade flow seen bilateral vertebral arteries. Electronically signed by : Triston English MD 03/22/2020 19:25:46
--- NOTE | 2020-03-22 08:00 | CA_ITS ---
APPROVED REPORT EXAM: Comprehensive 2D, Doppler, and color-flow Echocardiogram Segment Producer: Marge Villatoro RVT Ht: 5 ft 6 in Wt: 254lbs BSA: 2.21 BP: 121/50 mmHg Indications: EDEMA,OBESITY,HTN,HLD TDS 2D Dimensions LVOT 2.07 cm (M/F) 1.5-2.5 M-Mode Dimensions RVDd 3.11 cm (0.9-2.6) LA Diam 4.09 cm (1.9-4.0) LVDd 5.27 cm (3.5-5.7) Ao Diam 3.48 cm (2.0-3.7) LVDs 3.72 cm (3.5-5.7) IVSd 0.57 cm (0.6-1.1) PWd 0.91 cm (0.6-1.1) EF (Teich) 55.90% FS 29.40% EDV (Teich) 133.60 mL ESV (Teich) 58.90 mL LV Diastology E Decel Time 267.00 (160-240 msec) E/A Ratio 0.7 MED E' 4.70 (< 7 cm/sec) E'/MED E' Ratio 14.15 (>14) LAT E' 10.90 (<10 cm/sec) E/LAT E' Ratio 6.10 (>14) Mitral Valve MV E Max Filipe. 66.00 (40-130 cm/s) MV A Velocity 101.00 (40-130 cm/s) E/A Ratio 0.66 MV Decel. Time 267.00 (160-240 ms) MV PHT 78.00 ms Pulmonary Valve PV Peak Velocity 121.00 (50-150 cm/s) Tricuspid Valve TR P. Velocity 368.00 cm/s RAP Estimate 10.00 mmHg RVSP 64.00 mmHg Left Ventricle Left atrium is mildly enlarged, left ventricle is normal size, mild concentric left ventricular hypertrophy, visually estimated ejection fraction 55% with no regional wall motion abnormality, grade 1 diastolic dysfunction seen without tissue Doppler evidence of raise left atrial pressure. Right Ventricle Right atrium and right ventricle mildly enlarged with normal contractility. Aortic Valve Aortic valve is thickened and calcified, there is no aortic stenosis or aortic insufficiency. Mitral Valve Mitral valve leaflets are minimally thickened, there is mild mitral regurgitation. Tricuspid Valve Tricuspid valve grossly normal, there is mild tricuspid regurgitation, calculated right ventricular systolic pressure 64 mmHg. Pulmonic Valve Pulmonic valve is poorly visualized. Great Vessels Aortic root is normal size. Pericardium No significant pericardial effusion noted. Conclusion 1. Biatrial enlargement, normal left ventricular size, mild concentric left ventricular hypertrophy, visually estimated ejection fraction 55% with no regional wall motion abnormality, grade 1 diastolic dysfunction seen without tissue Doppler evidence of raise left atrial pressure. 2. Mildly enlarged right ventricle with normal contractility. 3. Mild mitral and tricuspid regurgitation, calculated right ventricular systolic pressure is 64 mmHg. 4. No significant pericardial effusion noted. Electronically signed by : Marino Luis, 03/23/2020 05:57:16
--- NOTE | 2020-03-22 09:03 | HMH.ACPN2 ---
Internal Medicine - PN: Subj *Date: 03/22/20 *Time: 09:03 Interval history: pt sitting up in bed eating breakfast. Exam Vital signs and Labs for Last 24 Hours: Temp Pulse Resp BP Pulse Ox 97.8 F 67 16 149/65 H 93 L 03/22/20 04:00 03/22/20 04:00 03/22/20 04:00 03/22/20 04:00 03/22/20 04:00 I & O for Last 24 hours: Intake & Output 03/19/20 03/20/20 03/21/20 03/22/20 11:59 11:59 11:59 11:59 Intake Total 720 / 720 600 / 600 Output Total 1550 / 1550 Balance -830 / -830 600 / 600 Weight 250 lb 244 lb 3 oz 244 lb 9 oz - Constitutional no acute distress - *Routine HEENT Exam Head: Present: normocephalic Eye: Present: PERRL ENT: Present: mucous membranes moist - *Routine Neck Exam Present: supple. Absent: lymphadenopathy - *Routine Respiratory Exam Present: CTA bilaterally - *Routine Cardiovascular Exam Present: RRR - *Routine Abdominal Exam Present: soft, normoactive bowel sounds. Absent: tenderness - *Routine Extremities Exam Present: edema, normal capillary refill. Absent: cyanosis, clubbing - *Routine Skin Exam Present: warm. Absent: rash - *Routine Neurological Exam Present: alert - Routine Psychiatric Exam Present: normal affect Assessment and Plan (1) Peripheral edema Status: Acute Category: Medical Code(s): R60.9 - Edema, unspecified (2) Weakness Status: Chronic Category: Medical Code(s): R53.1 - Weakness (3) DJD (degenerative joint disease) Status: Acute Qualifiers: Osteoarthritis location: foot Osteoarthritis type: primary Laterality: bilateral Qualified Code(s): M19.071 - Primary osteoarthritis, right ankle and foot; M19.072 - Primary osteoarthritis, left ankle and foot Category: Medical Code(s): M19.90 - Unspecified osteoarthritis, unspecified site (4) Edema of both lower extremities Status: Acute Category: Medical Code(s): R60.0 - Localized edema (5) Fatigue Status: Acute Qualifiers: Fatigue type: unspecified Qualified Code(s): R53.83 - Other fatigue Category: Medical Code(s): R53.83 - Other fatigue (6) Obesity (BMI 30-39.9) Status: Acute Category: Medical Code(s): E66.9 - Obesity, unspecified (7) Risk for falls Status: Acute Category: Medical Code(s): Z91.81 - History of falling (8) Sinus bradycardia Status: Acute Category: Medical Code(s): R00.1 - Bradycardia, unspecified (9) Anemia associated with nutritional deficiency Status: Chronic Category: Medical Code(s): D53.9 - Nutritional anemia, unspecified (10) History of bariatric surgery Status: Acute Category: Surgical Code(s): Z98.84 - Bariatric surgery status (11) Osteopenia Status: Acute Qualifiers: Osteopenia location: foot Laterality: bilateral Qualified Code(s): M85.871 - Other specified disorders of bone density and structure, right ankle and foot; M85.872 - Other specified disorders of bone density and structure, left ankle and foot Category: Medical Code(s): M85.80 - Other specified disorders of bone density and structure, unspecified site (12) Hypokalemia Status: Acute Category: Medical Code(s): E87.6 - Hypokalemia (13) Hyponatremia Status: Acute Category: Medical Code(s): E87.1 - Hypo-osmolality and hyponatremia - Assessment and plan all Dx Assessment and Plan for all problems:: rounded with dr nobles all orders per dr gillespie look at rehab placement started invanz waiting for cx
--- NOTE | 2020-03-22 09:16 | HMH.CNCARD ---
History of Present Illness Consult date: 03/22/20 Requesting physician: Dandre Lau Chief complaint: Edema Additional Medical History:: 1. Peripheral edema (03/21/20) a. On diuretics b. Chronic 2. Weakness (03/21/20) a. Debilitated 3. Diastolic Dysfunction a. Grade 1 (Echo 03/22/20) 4. Hx of CVA 5. Anemia 6. Obesity 7. Hyperlipidemia a. On statin therapy. 8. Hyponaterima (03/22/20) History of present illness: 80-year-old female admitted to [facility] on 03/21/20 for peripheral edema. Patient stated she also complains of weakness. Patient does live at home with her elderly . Patient is unable to perform her daily activities. Patient is obese. Patient is unable to walk far due to her debility of lower leg weakness. Patient denies chest pain, tightness or pressure. Patient denies shortness of breath. Peripheral swelling noted of the lower extremities. This is not new. This is no worse for patient. Patient is noted to be on 2 diuretics. Patient denies palpitations or dizziness. Patient does have history of hypertension and diastolic dysfunction. Patient has a history of CVA. Patient does have history of hyperlipidemia and is on statin therapy. His last appointment with cardiology was on 03/18/2020 in which Norvasc was stopped due to swelling. Initial work-up reveals hyponatremia and hypokalemia. This is managed per PCP. Serial cardiac enzymes were negative. BNP noted 996. Liver enzymes were elevated. CK-MB 2.6 and total CK 255. Preliminary echo today reveals EF 55% with no wall motion abnormality. Mild MR and TR noted. This is no change from previous echo which was performed in October 2019. Chest x-ray reveals borderline cardiomegaly failure. Tortisorty of the descending thoracic aorta. No acute findings noted. Show EKG noted as normal sinus rhythm with a heart rate of 81 bpm no ischemia noted. Discussed plan of care with Dr. Sharp and Dr. Lau. Plans for patient is to have patient placed detention due to debility and unable to care for herself. Uncertain whether patient is taking medications appropriately at home. We will continue to monitor patient status. Please notify cardiology any changes in patient's status. Thank you for letting cardiology participate in the care of this patient. [facility] History I have reviewed the patient's past medical history: Yes Medical History: Reports:: Hyperlipidemia, Hypertension, Transient Ischemic Attacks (TIA) Denies:: Cancer, Diabetes Mellitus Type 1, Diabetes Mellitus Type 2, MRSA *Have you ever received a pneumonia vaccine?: No *Have you received a flu vaccine this season?: No Other Medical History: Reports: Arthritis, Thyroid Disease Other Surgeries: Yes: Appendectomy, Bariatric Surgery, Cholecystectomy, Hysterectomy-Total Amputation: No Fractures: No - *Social History Smoking Status: Never smoker Alcohol Intake: never Substance Use Type: denies use *Occupational Status:: disabled Housing: house Household Members: children *Travel in the last 8 weeks: None Family Hx:: Hyperlipidemia, Hypertension, Stroke Meds Home Medications Medication Instructions Recorded Confirmed Type Cholecalciferol (Vitd3)/Vit K2 [D3 1 each PO DAILY 04/05/18 03/20/20 History + K2 Dots 1,000 Units Tab] acetaminophen 300 mg-codeine 30 mg 1 tab PO BID PRN #30 tab 10/30/19 03/20/20 Rx tablet lisinopril 40 mg tablet 40 mg PO DAILY #90 tab 01/05/20 03/20/20 Rx Indapamide 1.25 mg PO BID 03/20/20 03/20/20 History Loratadine [Allergy Relief] 10 mg PO DAILY 03/20/20 03/20/20 History Metoprolol Succinate [Metoprolol 25 mg PO DAILY 03/20/20 03/20/20 History Succinate 25mg Tablet*] Rosuvastatin Calcium 20 mg PO HS 03/20/20 03/20/20 History Spironolactone [Spironolactone 25 mg PO DAILY 03/20/20 03/20/20 History 25mg Tablet] Allergies Allergy/AdvReac Type Severity Reaction Status Date / Time Penicillins AdvReac Intermedia
--- NOTE | 2020-03-22 09:18 | PC.NURSE ---
Pt is A&Ox3. BLE edema= 2+ non pitting. Lung sounds CTA. Pt was a q2h turn this shift. Pt has been incontinent of bowel and urine this shift. Pt received a bed bath and bed change this shift. No other acute changes or complaints at this time.
[2020-03-22 09:25] LABS: Basophils % 0.2 % (0.1-2.0); Eosinophils # 0.1 K/mm3 (0.0-0.4); Eosinophils % 1.8 % (0.1-12.0); Hematocrit 37.4 % (37.0-47.0); Hemoglobin 12.2 g/dL (12.2-16.2); Lymphocytes # 1.1 K/mm3 (0.7-4.5); Lymphocytes % 14.3 % (10-50); Mean Corpuscular HGB Conc 32.5 g/dL (31.8-35.4); Mean Corpuscular Hemoglobin 30.7 pg (27.0-31.2); Mean Corpuscular Volume 94.3 fl (81-99); Mean Platelet Volume 7.7 fl (7.4-10.4); Monocytes # 0.4 K/mm3 (0.1-1.0); Monocytes % 5.2 % (1.7-9.3); Neutrophils # 5.8 K/mm3 (1.8-7.8); Neutrophils % 78.4 % (37.0-80.0); Platelet Count 336 K/mm3 (142-424); Red Blood Count 3.97 M/mm3 (4.20-5.40); White Blood Count 7.4 K/mm3 (4.8-10.8)
[2020-03-22 09:35] LABS: Anion Gap 12.5 mEq/L (5-15); Blood Urea Nitrogen 19 mg/dl (7-17); Calcium 9.9 mg/dl (8.4-10.2); Carbon Dioxide 34 mmol/L (22.0-30.0); Chloride 90 mmol/L (98-107); Creatinine Clearance Estimated 81 mL/min (50-200); Estimated Glomerular Filt Rate 54 ml/min (>60); GFR (African American) 65 ML/MIN (>60); Glucose 186 mg/dl (74-100); Potassium 3.5 mmoL/L (3.5-5.1); Sodium 133 mmol/L (136-145)
--- NOTE | 2020-03-22 11:44 | HMH.PTEV ---
Physical Therapy Evaluation Rehab PT IP Evaluation Start: 03/22/20 09:48 Freq: .once Status: Active Protocol: Document 03/22/20 11:37 ABBIE (Rec: 03/22/20 11:44 ABBIE [id number]) Subjective/History History History This is the initial IP PT evalaution for Jeaneth Whitney . Pt is a 80 y/o female admitted to [facility] through ED for weakness and BLE edema Subjective Subjective Pt reports she can't walk or stand up - pt reports she has pain in L knee and tailbone Rehab PT IP Eval Objective Appearance Patient Behavior Uncooperative,Fearful Patient Orientation Person,Place,Time Difficulty following instructions none Speech Pattern Clear,Appropriate Ambulation Patient Able to Ambulate No Balance Ability to Arise Unable Standing Balance Unsteady Dynamic Sitting Balance Ability Fair Dynamic Standing Balance Ability Zero Transfers Bed Transfer Ability Maximum x 2 (75% assist) Sit to Stand Bed Transfer Ability Maximum x 2 (75% assist) Rehab PT IP prob,goals,plan Problems Date of Evaluation: 03/22/20 PT IP Problems Bed Mobility,Transfers,Gait, Self care Rehab Potential Rehab Potential Poor Equipment Needs Assistive Devices Rolling / Wheeled Walker Plan PT Intervention Plan Bed Mobility,Transfers,Gait, Therapeutic Exercise PT Plan Frequency BID Duration LOS Discharge Goals Bed Transfer Ability Maximum x 2 (75% assist) Sit to Stand Chair Transfer Ability Maximum x 2 (75% assist) Ambulation Assistive Device Rolling Walker Ambulation Distance (feet) 2 Discharge Plan PT Discharge Plan pt will need skilled therapy from a SNF to allow improved level of function and improved level of independence. Pt will need large amounts of motivation to participate and change atitude of fear of falling. Without skilled therapy pt is at risk for falls, fractures, wounds, and increased burden of care. G -code Required Yes Eval Complexity Eval Charge Codes 51615 - Low Complexity G Codes PT Current Status Mobility PT Current Status Modifier CM-At least 80% but less than
--- NOTE | 2020-03-22 12:03 | HMH.OTEV ---
OT Inpatient Evaluation Rehab OT IP Evaluation Start: 03/22/20 09:49 Freq: ONCE Status: Complete Protocol: Document 03/22/20 11:57 PAMMARIA EUGENIA (Rec: 03/22/20 12:03 BRIA [id number]) Rehab OT IP Assessment Subjective History Patient was seen this morning, daughter was in the room. Most of the history comes from her. The story is 1 of progressive debility. The patient lives at home with an elderly , she has become progressively weak and unable to rise from a seated position. She requires care with all ADLs. The family has considered long-term placement. Patient is actively followed by Dr. Sharp. Her diuretic regimen was recently changed. She has issues with ongoing edema. He denies active chest pain, dyspnea, orthopnea. She has been eating well, no abdominal pain or emesis. She did sustain a fall, has ecchymosis to bilateral great toes. Are no palpable bony changes, but she is tender on the right great toe. Her distal perfusion is adequate, there is no ischemic demarcation. PMH: Hyperlipidemia, Hypertension, Transient Ischemic Attacks (TIA). Dtr present during evaluation. Patient lives in 2 story home with and son. Son currently works during the day , however the who is in his 80s provides patient with all ADLs and transfers. Patient used RW to ambulate within the home with report of three falls last week. Educated Patient re: importance of full participation with skilled IP services to improve overall function a
--- NOTE | 2020-03-22 12:09 | SW/DCPLANNER ---
Addendum entered by [facility] 03/24/20 09:20: Insurance has approved admission to [facility] per Amanda. Amanda has stated that she can accept this patient today. Dr Lau will follow patient at [facility]. I have made Dr Lau/Alan aware and patient will discharge today. I have spoke with patients daughter (Galina) and she will transport this patient today. COVID is negative and was faxed yesterday. Addendum entered by [facility] 03/23/20 14:59: COVID is negative and has been faxed to Amanda at [facility]. Currently still waiting to hear back from auth for insurance. Addendum entered by [facility] 03/23/20 14:31: I have spoke with patients daughter (Galina) and she has stated that she will transport this patient via family vehicle once insurance authorizes this patient. Continuing to follow up with Amanda from [facility] at this time. Addendum entered by [facility] 03/23/20 13:20: I have spoke with Amanda at [facility]: currently waiting to hear back from authorization from patients insurance and COVID results. Addendum entered by [facility] 03/23/20 09:41: This patient will discharge to [facility] once insurance approves. I have spoke with Amanda from [facility] and she has not heard from insurance at this time. Amnada has stated that COVID swab can be ordered at this time for this patient: she expected to hear back from insurance soon. Once insurance gives auth and COVID swab is negative patient will discharge to [facility]. Addendum entered by [facility] 03/22/20 13:42: I have also informed Dr Babb of this plan. Addendum entered by [facility] 03/22/20 13:42: Amanda from [facility] has stated that she can accept this patient pending insurance authorization. Amanda expected to hear back from insurance tomorrow: I will continue to follow up. Patients family is agreeable with this plan. Addendum entered by [facility] 03/22/20 13:01: [facility] is not in network with patients insurance. Addendum entered by [facility] 03/22/20 13:00: [facility] and [facility] are unable to accept admissions at this time. Addendum entered by [facility] 03/22/20 12:58: I have now spoke with daughter and . They have stated they spoke with patient and all are agreeable to placement at time of discharge. Family is interested in: [facility], [facility], [facility], [facility], [facility], [facility] or [facility]. The only facility that has responded in network with patients insurance at this time is [facility]: patient information has been faxed. [facility] is also looking over demographics to see if patient has an out of network policy. I will continue to follow up with facilities. Original Note: I have spoke with this patient and her daughter (POA and present in room during my visit) regarding discharge plans. Placement vs home health were both discussed at length with patient and daughter. Daughter stated that she would need to call and speak with patients prior to making any decisions. I did inform patient that due to pandemic no visitors are allowed at any placement facilities. I did explain to patient and daughter that if patient/ is interested in placement I would need to know soon to begin due to insurance process can be lengthy. Daughter stated that she would call patients then contact me back soon.
[2020-03-22 15:22] VITALS: BP 121/64; PULSE 67; RESP 20; TEMP 36.6; O2SAT 92
--- NOTE | 2020-03-22 19:47 | PC.NURSE ---
SHE HAS BEEN AO AND ABLE TO MAKE NEEDS KNOWN TO STAFF, HAS TOLERATED RA WELL WITH NO COMPLAINTS, TAKES PILL WHOLE, TOLERATING DIET WELL.
[2020-03-22 20:00] VITALS: BP 151/81; PULSE 82; RESP 18; TEMP 36.5; O2SAT 96
[2020-03-23 04:00] VITALS: BP 105/44; PULSE 66; RESP 20; TEMP 36.8; O2SAT 90
--- NOTE | 2020-03-23 04:01 | PC.NURSE ---
ABLE TO STATE NAME, , YEAR AND PLACE WELL FOLLOWS COMMANDS. PT. HAS NOT C/O N/V/D, SOA OR DIZZINESS THIS SHIFT. PT. HAS C/O PAIN IN BACK; TX WITH PRN MEDS. +2 NONPITTING EDEMA TO BLE; ELEVATED BLE AT THIS TIME.
[2020-03-23 05:23] VITALS: BMI 39.3
[2020-03-23 07:03] LABS: Basophils % 0.5 % (0.1-2.0); Eosinophils # 0.2 K/mm3 (0.0-0.4); Eosinophils % 3.3 % (0.1-12.0); Hematocrit 35.9 % (37.0-47.0); Hemoglobin 11.7 g/dL (12.2-16.2); Lymphocytes # 1.4 K/mm3 (0.7-4.5); Lymphocytes % 20.5 % (10-50); Mean Corpuscular HGB Conc 32.6 g/dL (31.8-35.4); Mean Corpuscular Hemoglobin 30.6 pg (27.0-31.2); Mean Corpuscular Volume 93.7 fl (81-99); Monocytes # 0.5 K/mm3 (0.1-1.0); Monocytes % 7.6 % (1.7-9.3); Neutrophils # 4.7 K/mm3 (1.8-7.8); Neutrophils % 68.1 % (37.0-80.0); Platelet Count 353 K/mm3 (142-424); Red Blood Count 3.83 M/mm3 (4.20-5.40); Red Cell Distribution Width 13.1 % (11.5-17.5); White Blood Count 6.8 K/mm3 (4.8-10.8)
[2020-03-23 07:12] LABS: Anion Gap 11.5 mEq/L (5-15); Blood Urea Nitrogen 38 mg/dl (7-17); Calcium 9.4 mg/dl (8.4-10.2); Carbon Dioxide 31 mmol/L (22.0-30.0); Chloride 94 mmol/L (98-107); Creatinine Clearance Estimated 74 mL/min (50-200); Estimated Glomerular Filt Rate 48 ml/min (>60); GFR (African American) 58 ML/MIN (>60); Glucose 135 mg/dl (74-100); Potassium 3.5 mmoL/L (3.5-5.1); Sodium 133 mmol/L (136-145)
[2020-03-23 08:00] VITALS: BP 105/51; PULSE 62; RESP 18; TEMP 36.4; O2SAT 96
--- NOTE | 2020-03-23 09:15 | HMH.ACPN2 ---
Internal Medicine - PN: Portia *Date: 03/23/20 *Time: 09:15 Interval history: 80 YOM sitting up in bed, no respiratory distress noted. she reports feeling and we are awaiting NH placement. Exam Vital signs and Labs for Last 24 Hours: Temp Pulse Resp BP Pulse Ox 97.8 F 62 20 105/52 L 94 L 03/23/20 15:42 03/23/20 15:42 03/23/20 15:42 03/23/20 15:42 03/23/20 15:42 Laboratory Results - last 24 hr 03/23/20 06:26: WBC 6.8, RBC 3.83 L, Hgb 11.7 L, Hct 35.9 L, MCV 93.7, MCH 30.6, MCHC 32.6, RDW 13.1, Plt Count 353, MPV 8.0, Neut % (Auto) 68.1, Lymph % (Auto) 20.5, [place] % (Auto) 7.6, Eos % (Auto) 3.3, Baso % (Auto) 0.5, Neut # (Auto) 4.7, Lymph # (Auto) 1.4, [place] # (Auto) 0.5, Eos # (Auto) 0.2, Baso # (Auto) 0.0 03/23/20 06:26: Sodium 133 L, Potassium 3.5, Chloride 94 L, Carbon Dioxide 31 H, Anion Gap 11.5, BUN 38 H D, Creatinine 1.10 H, Estimated Creat Clear 74, Estimated GFR 48 L, Est GFR ( Amer) 58 L, Glucose 135 H D, Calcium 9.4 03/23/20 13:15: Chlamy pneumoniae PCR Not detected, Adenovirus (PCR) Not detected, B. pertussis DNA (PCR) Not detected, Coronavirus OC43 (PCR) Not detected, Coronavirus HKU1 (PCR) Not detected, Coronavirus 229E (PCR) Not detected, SARS-CoV-2 (PCR) Not detected, Coronavirus NL63 (PCR) Not detected, Human Metapneumovir PCR Not detected, Influenza A (H1) PCR Not detected, Influ A (H1N1/09) PCR Not detected, Influenza A (H3) PCR Not detected, Influenza Type A (PCR) Not detected, Influenza Type B (PCR) Not detected, M. pneumoniae (PCR) Not detected, Parainfluenza 1 (PCR) Not detected, Parainfluenza 2 (PCR) Not detected, Parainfluenza 3 (PCR) Not detected, Parainfluenza 4 (PCR) Not detected, RSV (PCR) Not detected, Entero/Rhino (PCR) Not detected I & O for Last 24 hours: Intake & Output 03/20/20 03/21/20 03/22/20 03/23/20 23:59 23:59 23:59 23:59 Intake Total 480 / 480 720 / 840 2040 / 2040 600 / 600 Output Total 1200 / 1200 350 / 350 450 / 450 Balance -720 / -720 370 / 490 1590 / 1590 600 / 600 Weight 254 lb 4 oz 244 lb 3 oz 244 lb 9 oz 244 lb 9 oz Microbiology Reports for the Last 24 Hours: Microbiology 03/21/20 16:30 Urine,[place] Urine Culture - Final NO GROWTH AFTER 48 HOURS - Constitutional no acute distress, morbidly obese - *Routine HEENT Exam Head: Present: normocephalic Eye: Present: EOMI ENT: Present: mucous membranes moist - *Routine Neck Exam Present: trachea midline. Absent: tracheal deviation - *Routine Respiratory Exam Present: CTA bilaterally. Absent: accessory muscle use - *Routine Cardiovascular Exam Present: RRR. Absent: tachycardia - *Routine Abdominal Exam Present: soft, normoactive bowel sounds. Absent: tenderness, rigid - *Routine Extremities Exam Present: edema, full ROM, pulses intact. Absent: cyanosis, calf tenderness - *Routine Neurological Exam Present: alert, oriented X3. Absent: normal reflexes, altered mental status - Routine Psychiatric Exam Present: normal affect, normal thought process, cooperative. Absent: auditory hallucinations, visual hallucinations Assessment and Plan (1) Peripheral edema Status: Acute Category: Medical Code(s): R60.9 - Edema, unspecified (2) Weakness Status: Chronic Category: Medical Code(s): R53.1 - Weakness (3) DJD (degenerative joint disease) Status: Acute Qualifiers: Osteoarthritis location: foot Osteoarthritis type: primary Laterality: bilateral Qualified Code(s): M19.071 - Primary osteoarthritis, right ankle and foot; M19.072 - Primary osteoarthritis, left ankle and foot Category: Medical Code(s): M19.90 - Unspecified osteoarthritis, unspecified site (4) Edema of both lower extremities Status: Acute Category: Medical Code(s): R60.0 - Localized edema (5) Fatigue Status: Acute Qualifiers: Fatigue type: unspecified Qualified Code(s): R53.83 - Other fatigue Category: Medical Code(s): R53.83 - Other
[2020-03-23 13:38] LABS: Adenovirus,PCR Not Detected (NotDetected); Bordetella Pertussis Not Detected (NotDetected); Chlamydophila Pneumoniae, PCR Not Detected (NotDetected); Coronavirus 19, PCR Not Detected (NotDetected); Coronavirus 229E Not Detected (NotDetected); Coronavirus NL63 Not Detected (NotDetected); Coronavirus OC43 Not Detected (NotDetected); Coronovirus HKU1,PCR Not Detected (NotDetected); Human Metapneumovirus Not Detected (NotDetected); Influenza A, PCR Not Detected (NotDetected); Influenza AH1, 2009 Not Detected (NotDetected); Influenza AH1, PCR Not Detected (NotDetected); Influenza AH3,PCR Not Detected (NotDetected); Influenza B, PCR Not Detected (NotDetected); Mycoplasma Pneumoniae, PCR Not Detected (NotDetected); Parainfluenza 1, PCR Not Detected (NotDetected); Parainfluenza 2, PCR Not Detected (NotDetected); Parainfluenza 3, PCR Not Detected (NotDetected); Parainfluenza 4, PCR Not Detected (NotDetected); Respiratory Syncytial Virus Not Detected (NotDetected); Rhinovirus/Enterovirus Not Detected (NotDetected)
[2020-03-23 15:42] VITALS: BP 105/52; PULSE 62; RESP 20; TEMP 36.6; O2SAT 94
--- NOTE | 2020-03-23 17:26 | PC.NURSE ---
Pt up to chair most of day, tolerating activity well. Lungs CTA. Abdomen soft, non-tender w/ active BS. +2 pitting edema noted to BLE, elevated this shift. No complaints voiced this shift. visited most of day. VSS
[2020-03-23 20:00] VITALS: BP 111/53; PULSE 66; RESP 18; TEMP 36.4; O2SAT 91
--- NOTE | 2020-03-24 03:22 | PC.NURSE ---
Addendum entered by Radha Coley RN 03/24/20 03:24: non pitting 2+ edema noted to BLE Original Note: pt AxOx4, no complaints of SOA or chest pain, lungs CTA, remains on room air
[2020-03-24 04:00] VITALS: BP 111/51; PULSE 66; RESP 18; TEMP 36.6; O2SAT 92
[2020-03-24 07:48] LABS: Basophils % 0.6 % (0.1-2.0); Eosinophils # 0.3 K/mm3 (0.0-0.4); Eosinophils % 3.8 % (0.1-12.0); Hematocrit 34.3 % (37.0-47.0); Hemoglobin 10.8 g/dL (12.2-16.2); Lymphocytes # 1.6 K/mm3 (0.7-4.5); Lymphocytes % 24.7 % (10-50); Mean Corpuscular HGB Conc 31.4 g/dL (31.8-35.4); Mean Corpuscular Hemoglobin 29.5 pg (27.0-31.2); Mean Corpuscular Volume 93.8 fl (81-99); Mean Platelet Volume 7.4 fl (7.4-10.4); Monocytes # 0.5 K/mm3 (0.1-1.0); Neutrophils # 4.1 K/mm3 (1.8-7.8); Neutrophils % 62.9 % (37.0-80.0); Platelet Count 368 K/mm3 (142-424); Red Blood Count 3.66 M/mm3 (4.20-5.40); Red Cell Distribution Width 12.4 % (11.5-17.5); White Blood Count 6.5 K/mm3 (4.8-10.8)
[2020-03-24 07:51] VITALS: BMI 39.4
[2020-03-24 08:00] VITALS: BP 107/58; PULSE 61; RESP 19; TEMP 36.8; O2SAT 91
[2020-03-24 08:02] LABS: Anion Gap 12.8 mEq/L (5-15); Blood Urea Nitrogen 53 mg/dl (7-17); Calcium 9.5 mg/dl (8.4-10.2); Carbon Dioxide 32 mmol/L (22.0-30.0); Chloride 93 mmol/L (98-107); Creatinine Clearance Estimated 58 mL/min (50-200); Estimated Glomerular Filt Rate 36 ml/min (>60); GFR (African American) 44 ML/MIN (>60); Glucose 119 mg/dl (74-100); Potassium 3.8 mmoL/L (3.5-5.1); Sodium 134 mmol/L (136-145)
--- NOTE | 2020-03-24 08:58 | HMH.DCSUM ---
General - General Admission date:: 03/20/20 Discharge date: 03/24/20 HPI HPI: Patient was seen this morning, daughter was in the room. Most of the history comes from her. The story is 1 of progressive debility. The patient lives at home with an elderly , she has become progressively weak and unable to rise from a seated position. She requires care with all ADLs. The family has considered usp placement. Patient is actively followed by Dr. Sharp. Her diuretic regimen was recently changed. She has issues with ongoing edema. He denies active chest pain, dyspnea, orthopnea. She has been eating well, no abdominal pain or emesis. She did sustain a fall, has ecchymosis to bilateral great toes. Are no palpable bony changes, but she is tender on the right great toe. Her distal perfusion is adequate, there is no ischemic demarcation. She is awake, alert. Is in no significant distress. Her emergency room work-up included imaging of the chest. Results are as follows. Heart size is normal. There is minimal undulation along the left heart border superiorly which may be related to prominent pulmonary artery. This is not significantly changed. The lungs are clear without infiltrates, suspicious nodules, or pleural effusions. There are surgical clips in the left and right upper quadrant No acute bony abnormalities. IMPRESSION: No change with no acute finding Labs were done which showed nitrates in the urine and a slightly elevated pro BNP. I think her biggest issues during this hospitalization will be progressive debility, need for usp placement, and management of volume status. She has significant disuse atrophy of the skeletal muscle, and where she could previously ambulate a short distance she is no longer capable of that. Hospital Course Hospital Course: Patient was seen this morning, daughter was in the room. Most of the history comes from her. The story is 1 of progressive debility. The patient lives at home with an elderly , she has become progressively weak and unable to rise from a seated position. She requires care with all ADLs. The family has considered usp placement. Patient is actively followed by Dr. Sharp. Her diuretic regimen was recently changed. She has issues with ongoing edema. He denies active chest pain, dyspnea, orthopnea. She has been eating well, no abdominal pain or emesis. She did sustain a fall, has ecchymosis to bilateral great toes. Are no palpable bony changes, but she is tender on the right great toe. Her distal perfusion is adequate, there is no ischemic demarcation. She is awake, alert. Is in no significant distress. Her emergency room work-up included imaging of the chest. Results are as follows. Heart size is normal. There is minimal undulation along the left heart border superiorly which may be related to prominent pulmonary artery. This is not significantly changed. The lungs are clear without infiltrates, suspicious nodules, or pleural effusions. There are surgical clips in the left and right upper quadrant No acute bony abnormalities. IMPRESSION: No change with no acute finding Labs were done which showed nitrates in the urine and a slightly elevated pro BNP. I think her biggest issues during this hospitalization will be progressive debility, need for usp placement, and management of volume status. She has significant disuse atrophy of the skeletal muscle, and where she could previously ambulate a short distance she is no longer capable of that (Per Dr. Babb). 03/21/20 bilateral feet x-ray: No acute findings 03/22/20 carotid duplex: Findings Study suggests 20-49% stenosis of the right internal cartoid artery. Study suggests less than 20% stenosis of the left internal cartoid artery. Antegrade flow seen bilateral vertebral arteries. Conclusion Study suggests 20-49% stenosi
--- NOTE | 2020-03-24 10:45 | PC.NURSE ---
Detailed report called to Radhika @ [facility] @ this time. Awaiting arrival of pt's daughter for transport.
== END 2020-03-24 11:34 ==
LOC: ER 11:55 → 2ND 12:20
PROVIDERS: Family Medicine; Nurse Practitioner Family; Admitting Provider Internal Medicine Adolescent Medicine; Emergency Provider Emergency Medicine; PCP Emergency Medicine; Visit Provider Emergency Medicine
DX: R60.9 Edema, unspecified (principal); R60.0 Localized edema; N39.0 Urinary tract infection, site not specified; E03.9 Hypothyroidism, unspecified; M19.071 Primary osteoarthritis, right ankle and foot; M19.072 Primary osteoarthritis, left ankle and foot; M85.871 Other specified disorders of bone density and structure, right ankle and foot; M85.872 Other specified disorders of bone density and structure, left ankle and foot; E87.6 Hypokalemia; E87.1 Hypo-osmolality and hyponatremia; I11.0 Hypertensive heart disease with heart failure; I50.9 Heart failure, unspecified; D53.9 Nutritional anemia, unspecified; Z79.899 Other long term (current) drug therapy; Z86.73 Personal history of transient ischemic attack (TIA), and cerebral infarction without residual deficits
CPT/HCPCS: 36415; 71045; 73620; 80048; 80053; 81001; 82550; 82553; 83540; 83550; 83880; 84443; 84484; 85007; 85025; 86328; 87086; 87581; 87633; 87798; 93005; 93306; 93880; 96374; 97110; 97161; 97165; 97530; 99284; G0378; J1335; U0003

== ENCOUNTER → 2021-01-10 17:49 | Outpatient (CLI) | payer MEDICARE, SELFPAY | PROVIDERS: Visit Provider Nurse Practitioner Family | DX: L02.214 Cutaneous abscess of groin (principal) | CPT/HCPCS: 87070; 87205 ==

== ENCOUNTER → 2021-06-28 15:39 | Outpatient (CLI) | payer MEDICARE, SELFPAY ==
[2021-06-28 18:54] LABS: Coronavirus 19, PCR Not Detected (NotDetected); Influenza A, PCR Not Detected (NotDetected); Influenza B, PCR Not Detected (NotDetected)
[2021-06-28 19:27] LABS: Basophils # 0.1 K/mm3 (0-0.2); Basophils % 0.9 % (0.1-2.0); Eosinophils # 0.2 K/mm3 (0.0-0.4); Eosinophils % 3.7 % (0.1-12.0); Hematocrit 35.5 % (37.0-47.0); Hemoglobin 11.2 g/dL (12.2-16.2); Lymphocytes # 1.4 K/mm3 (0.7-4.5); Mean Corpuscular HGB Conc 31.6 g/dL (31.8-35.4); Mean Platelet Volume 9.1 fl (7.4-10.4); Monocytes # 0.4 K/mm3 (0.1-1.0); Monocytes % 7.1 % (1.7-9.3); Neutrophils # 4.1 K/mm3 (1.8-7.8); Neutrophils % 66.3 % (37.0-80.0); Platelet Count 378 K/mm3 (142-424); Red Blood Count 3.52 M/mm3 (4.20-5.40); Red Cell Distribution Width 13.4 % (11.5-17.5); White Blood Count 6.2 K/mm3 (4.8-10.8)
[2021-06-28 19:30] LABS: Alanine Aminotransferase 21 U/L (12-78); Albumin Level 3.2 g/dl (3.5-5.0); Albumin/Globulin Ratio 1.3 (1.1-1.8); Alkaline Phosphatase 74 U/L (38-126); Anion Gap 9.5 mEq/L (5-15); Aspartate Amino Transferase 22 U/L (14-36); Bilirubin,Total 0.4 mg/dl (0.2-1.3); Blood Urea Nitrogen 27 mg/dl (7-17); Calcium 9.3 mg/dl (8.4-10.2); Carbon Dioxide 28 mmol/L (22.0-30.0); Chloride 105 mmol/L (98-107); Estimated Glomerular Filt Rate 40 ml/min (>60); GFR (African American) 48 ML/MIN (>60); Globulin 2.5 g/dL (1.3-3.2); Glucose 142 mg/dl (74-100); Potassium 5.5 mmoL/L (3.5-5.1); Sodium 137 mmol/L (136-145); Total Protein,Serum 5.7 g/dl (6.3-8.2)
[2021-06-28 19:47] LABS: Free T4 (Free Thyroxine) 1.19 ng/dl (0.78-2.19)
[2021-06-28 20:01] LABS: Thyroid Stimulating Hormone 2.21 uIU/mL (0.465-4.68)
== END ==
PROVIDERS: PCP Emergency Medicine; Visit Provider Emergency Medicine
DX: E87.1 Hypo-osmolality and hyponatremia; Z01.812 Encounter for preprocedural laboratory examination; Z11.52 Encounter for screening for COVID-19; L02.91 Cutaneous abscess, unspecified
CPT/HCPCS: 80053; 84439; 84443; 85025; C9803; U0003; U0005

== ENCOUNTER 2021-06-30 09:07 | Day surgery (SDC) | payer MEDICARE, SELFPAY ==
[2021-06-30] VITALS (13 sets, daily range): BP systolic 102–153; BP diastolic 56–88; PULSE 58–95; RESP 14–18; TEMP 36.6–43; O2SAT 91–99; BMI 44.4
--- NOTE | 2021-06-30 10:35 | HMH.ANESCL ---
[facility] Anesthesia Checklist - Patient Identification Patient Identification: Arm Band - Structural Data Admitted From: Home Planned Operative Procedure/s: Excision of Abscessed Cyst Right Groin Consent for Planned Operative Procedure(s) Verified: Yes Verified Documents: Surgical Consent - NPO Status Verified Time NPO: 00:00 - Additional verifications Anesthesia Reactions: No Hx Blood Transfusions: No Blood Transfusion Reaction: No - Airway Assessment C-Spine Mobility Assessed: Yes (mp2) TMJ Mobility Assessed: Yes Dentition: Poor Dentition - Neurological Assessment Level of Consciousness: Awake, Alert - Anesthesia Plan Anesthesia Risk discussed: Yes Anesthesia Plan: Verified ASA Class: III Anesthesia Type: General [facility] History I have reviewed the patient's past medical history: Yes Medical History: Reports:: Hyperlipidemia, Hypertension, Transient Ischemic Attacks (TIA) Denies:: Cancer, Diabetes Mellitus Type 1, Diabetes Mellitus Type 2, Internal Pacemaker, MRSA, Seizures *Have you ever received a pneumonia vaccine?: Yes *Have you received a flu vaccine this season?: No Other Medical History: Reports: Arthritis, Thyroid Disease. Denies: Blood Transfusion Reaction Anesthesia experience/problems:: nac Other Surgeries: Yes: Appendectomy, Bariatric Surgery, Cholecystectomy, Hysterectomy-Total. No: Pacemaker Amputation: No Fractures: No - *Social History Last grade of school completed: High school graduate Smoking Status: Never smoker Alcohol Intake: never Substance Use Type: denies use *Occupational Status:: disabled Housing: house Household Members: spouse *Travel in the last 8 weeks: None Family Hx:: No significant family history
--- NOTE | 2021-06-30 11:03 | HMH.OPNOTE ---
Date of procedure: 06/30/21 Pre-op Diagnosis:: 4 cm right groin pyogenic granuloma Post-op Diagnosis:: 4 x 6 cm right groin abscessed cyst with necrosis and overlying pyogenic granuloma Procedure performed:: Excision of abscess necrotic right groin cyst with overlying pyogenic granuloma Surgeon:: Geovany Eden MD FITTINGS TIGHTENER:: Harley Pressley Anesthesia: LMA Estimated blood loss (mL): 15 Operative findings:: 4 x 6 cm complex abscess cyst with necrosis and overlying pyogenic granuloma along right medial groin Operative note:: After informed consent was obtained the patient was taken to the operating room and placed in the supine position. General anesthesia with laryngeal airway was achieved. Her right groin was prepped and draped in a sterile fashion. After infiltration local anesthetic an incision was made along the margin of the overlying pyogenic granuloma. A complex/necrotic abscessed cystic lesion was then encountered deeper within the groin and the overall dimensions of the lesion were noted to be 4 x 6 cm. A combination of blunt dissection electrocautery was utilized to excise the firm nodular lesion. The entire specimen was passed off for pathologic evaluation. Electrocautery was utilized to achieve hemostasis. The superior and inferior margins of the wound were reapproximated and the central portion was packed with moistened Kerlix that was infiltrated with 1% lidocaine. Dressings were applied and the patient was transferred to recovery in stable condition after removal of her laryngeal mask airway. Condition: stable Disposition: PACU Specimens:: Right groin cyst/pyogenic granuloma Complications:: No immediate
--- NOTE | 2021-06-30 11:08 | P.PN_ITS ---
[facility] Anesthesia Record Part I Intake, IV Amount: 800 Estimated blood loss (mL): 10 Urine output (mL): 0 Blood Pressure: 145/75 SaO2: 92 Pulse Rate: 86 Respiratory Rate: 16 Temperature: 98.7 F Patient is:: Drowsy, Stable Stable to PACU at:: 11:05
--- NOTE | 2021-06-30 12:04 | PC.NURSE ---
RT at bedside for nikolai
--- NOTE | 2021-06-30 12:43 | SW/DCPLANNER ---
Addendum entered by Racquel Hong 06/30/21 15:00: [facility] can not start services Sunday. Patient information/order has been faxed to [facility] of . I spoke with Cecile at [facility] and she stated that services can begin tomorrow morning for this patient. I will call and update patient's . Original Note: Patient information/order has been faxed to Mer borreg[facility]/ [facility] for dressing changes. I will follow up with Mer once patient information reviewed.
--- NOTE | 2021-06-30 12:49 | SUR.OPER ---
late entry [id number] family given an update by Amee Pack, RN
--- NOTE | 2021-06-30 13:07 | SUR.PHASEII ---
patient was assisted to from stretcher with use of draw sheet and Jonathan RN, [place]og[place], Aleida RN, Jonathan RN, Cele RN, Tati RN. Son stated he hurt her arm transferring her this morning from bed to . Patient stated she was comfortable. Went to lobby with and son to wait on transportation van
[2021-07-04 07:34] VITALS: BP 112/65; PULSE 75; TEMP 36.6
--- NOTE | 2021-07-04 07:34 | HMH.ANESII ---
[facility] Anesthesia Record Part II Discharge Time: 11:45 Destination: Surgical Day Care (OP Surgery) PACU nurse assessment reviewed?: Yes Patient Condition:: Good Anesthesia Complications:: None Swallowing reflex intact?: Yes Cyanosis?: No Blood Pressure: 112/65 Pulse Rate: 75 Temperature: 97.8 F Mental Status: Alert & Oriented Pain level:: 4 Nausea and/or vomitting:: None Intake, IV Amount: 0
== END 2021-06-30 12:40 | disposition home or self-care (01) ==
LOC: OR 09:09
PROVIDERS: PCP Emergency Medicine; Visit Provider Surgery
DX: L02.214 Cutaneous abscess of groin (principal); I96 Gangrene, not elsewhere classified; L98.0 Pyogenic granuloma; I10 Essential (primary) hypertension; E78.5 Hyperlipidemia, unspecified; M19.90 Unspecified osteoarthritis, unspecified site; E07.9 Disorder of thyroid, unspecified; Z86.73 Personal history of transient ischemic attack (TIA), and cerebral infarction without residual deficits; Z88.0 Allergy status to penicillin; Z79.899 Other long term (current) drug therapy
CPT/HCPCS: 11406; 13101; 88305; 88342; 88360; 88365; 94640; 96374; J2405

== ENCOUNTER → 2021-07-26 11:32 | Outpatient (CLI) | payer MEDICARE, SELFPAY ==
[2021-07-26 11:38] LABS: Microscopic, Urine URINE MICROSCOPIC (MICROSCOPIC)
[2021-07-26 12:31] LABS: Appearance,Urine SL CLOUDY (Clear); Bilirubin,Urine Negative (Negative); Blood, Urine Negative (Negative); Color,Urine YELLOW (Yellow); Glucose,Urine (UA) Negative (Negative); Ketones,Urine Negative (Negative); Leukocyte Esterase,Urine 2+ (Negative); Nitrate,Urine POSITIVE (Negative); Protein,Urine 1+ (Negative)
[2021-07-26 13:34] LABS: Amorphous Sediment,Urine 2+ /lpf; Bacteria,Urine 3+ /lpf; RBC,Urine Occasional #/hpf (0-3); Squamous Epithelial Cell,Urine Occasional #/hpf (0-5)
== END ==
PROVIDERS: PCP Emergency Medicine; Visit Provider Emergency Medicine
DX: L98.0 Pyogenic granuloma (principal); L02.214 Cutaneous abscess of groin; I10 Essential (primary) hypertension; E55.9 Vitamin D deficiency, unspecified; Z68.41 Body mass index [BMI] 40.0-44.9, adult; B95.2 Enterococcus as the cause of diseases classified elsewhere; R82.90 Unspecified abnormal findings in urine
CPT/HCPCS: 81001; 87086; 87088; 87186

== ENCOUNTER → 2021-11-11 00:30 | Outpatient (CLI) | payer MEDICARE, SELFPAY ==
[2021-11-11 19:21] LABS: Basophils % 0.2 % (0.1-2.0); Eosinophils # 0.2 K/mm3 (0.0-0.4); Eosinophils % 1.8 % (0.1-12.0); Hematocrit 38.8 % (37.0-47.0); Hemoglobin 12.5 g/dL (12.2-16.2); Lymphocytes # 1.4 K/mm3 (0.7-4.5); Lymphocytes % 12.8 % (10-50); Mean Corpuscular HGB Conc 32.3 g/dL (31.8-35.4); Mean Corpuscular Hemoglobin 30.6 pg (27.0-31.2); Mean Platelet Volume 9.1 fl (7.4-10.4); Monocytes # 0.8 K/mm3 (0.1-1.0); Monocytes % 7.5 % (1.7-9.3); Neutrophils # 8.4 K/mm3 (1.8-7.8); Neutrophils % 77.7 % (37.0-80.0); Platelet Count 343 K/mm3 (142-424); Red Blood Count 4.09 M/mm3 (4.20-5.40); Red Cell Distribution Width 13.6 % (11.5-17.5); White Blood Count 10.8 K/mm3 (4.8-10.8)
[2021-11-11 19:34] LABS: Alanine Aminotransferase 14 U/L (12-78); Albumin/Globulin Ratio 1.2 (1.1-1.8); Alkaline Phosphatase 92 U/L (38-126); Anion Gap 10.8 mEq/L (5-15); Aspartate Amino Transferase 19 U/L (14-36); Bilirubin,Total 0.8 mg/dl (0.2-1.3); Blood Urea Nitrogen 22 mg/dl (7-17); Calcium 8.4 mg/dl (8.4-10.2); Carbon Dioxide 36 mmol/L (22.0-30.0); Chloride 81 mmol/L (98-107); Estimated Glomerular Filt Rate 60 ml/min (>60); GFR (African American) 73 ML/MIN (>60); Globulin 2.5 g/dL (1.3-3.2); Glucose 126 mg/dl (74-100); Potassium 3.8 mmoL/L (3.5-5.1); Sodium 124 mmol/L (136-145); Total Protein,Serum 5.5 g/dl (6.3-8.2)
[2021-11-11 19:48] LABS: Free T4 (Free Thyroxine) 1.52 ng/dl (0.78-2.19)
[2021-11-11 20:01] LABS: Thyroid Stimulating Hormone 1.42 uIU/mL (0.465-4.68)
[2021-11-11 20:15] LABS: 25-OH Vitamin D, Total 16.5 ng/mL (30-100)
== END ==
PROVIDERS: PCP Emergency Medicine; Visit Provider Emergency Medicine
DX: M62.81 Muscle weakness (generalized) (principal); R53.83 Other fatigue; K59.00 Constipation, unspecified; M85.871 Other specified disorders of bone density and structure, right ankle and foot; M85.872 Other specified disorders of bone density and structure, left ankle and foot; R82.90 Unspecified abnormal findings in urine; B96.1 Klebsiella pneumoniae [K. pneumoniae] as the cause of diseases classified elsewhere; E55.9 Vitamin D deficiency, unspecified
CPT/HCPCS: 80053; 82306; 84439; 84443; 85025; 87086; 87088; 87186

== ENCOUNTER → 2021-12-16 11:06 | Outpatient (CLI) | payer OTHER, SELFPAY ==
[2021-12-16 15:25] LABS: Microscopic, Urine URINE MICROSCOPIC (MICROSCOPIC)
[2021-12-16 16:06] LABS: Appearance,Urine SL CLOUDY (Clear); Bilirubin,Urine Negative (Negative); Blood, Urine Negative (Negative); Color,Urine YELLOW (Yellow); Glucose,Urine (UA) Negative (Negative); Ketones,Urine Negative (Negative); Leukocyte Esterase,Urine 1+ (Negative); Nitrate,Urine POSITIVE (Negative); Protein,Urine Negative (Negative); Specific Gravity, Urine >= 1.030 (1.005-1.030); Urobilinogen,Urine 0.2 EU/dl (0.2)
[2021-12-16 16:18] LABS: Bacteria,Urine 2+ /lpf; RBC,Urine Occasional #/hpf (0-3)
== END ==
PROVIDERS: PCP Family Medicine Hospice and Palliative Medicine; Visit Provider Family Medicine Hospice and Palliative Medicine
DX: N39.0 Urinary tract infection, site not specified (principal); B96.1 Klebsiella pneumoniae [K. pneumoniae] as the cause of diseases classified elsewhere
CPT/HCPCS: 81001; 87086; 87088; 87186